=== PATIENT | female | born 1995 | race Caucasian/White ===

== ENCOUNTER 2017-11-19 05:39 | Inpatient (IN) | payer OTHER ==
[2017-11-18 14:25] LABS: RPR Titer ND
[2017-11-18 14:34] LABS: Urine Appearance CLEAR; Urine Bilirubin NEGATIVE (NEG); Urine Blood NEGATIVE (NEG); Urine Color YELLOW; Urine Glucose NEGATIVE (NEG); Urine Protein NEGATIVE (NEG); Urine Urobilinogen 0.2 mg/dL (0.2-1.0)
[2017-11-18 14:37] LABS: Absolute Lymphocytes (CBC) 1.4 K/uL (0.7-4.9); Absolute Neutrophil 7.7 K/uL (1.8-8.0); Basophils % 0.3 % (0-1.3); Eosinophils % 0.7 % (0-4.4); Hematocrit 33.7 % (36.0-45.0); MCH 30.3 pg (27.0-35.0); MCV 86.1 fL (80-100); MPV 10.1 fL (7.6-11.3); Monocytes % 9.8 % (3.3-12.3); RBC Red Blood Cell Count 3.91 M/uL (3.86-4.86)
[2017-11-18 14:40] LABS: Protime INR 0.99
[2017-11-18 15:13] LABS: Blood Morphology Comment NOT SEEN (NOT SEEN); Platelet Estimate ADEQ; Urine White Blood Cell Casts OK
[2017-11-18 15:25] LABS: Urine Bacteria 20-50 /HPF (<20); Urine Culture Reflex Order REFLEXED; Urine RBC <5 /HPF (NONE SEEN)
[2017-11-18 22:54] LABS: RPR (Rapid Plasma Reagin) NON-REACT (NON-REACT)
[~2017-11-19 05:39] MED LIST: CARBOPROST TROME 250 MCG/ML IM ONE; METHYLERGONOVINE 0.2MG/ML AMP IM ONE
[2017-11-19] MEDS ORDERED: Ringers Lactate 1,000 ML IV PRN (06:00)
[2017-11-19] MEDS ORDERED: CEFAZOLIN/SWI 1gm 2 GM/20 ML SYR ONE (06:12)
[2017-11-19 06:30] VITALS: BMI 38.0
[2017-11-19] MEDS ORDERED: METOCLOPRAMIDE 10 MG/2mL INJ IV SCH (06:30)
[2017-11-19] MEDS ORDERED: NA CIT/CITRIC AC 30 ML ORAL UDC PO ONE (06:30)
[2017-11-19] MEDS ORDERED: EPHEDRINE SULF 50 MG/ML SYR ONE (06:44)
[2017-11-19] MEDS ORDERED: MORPHINE SULFATE/PF 1 MG/ML (10 ML AMP) ONE (06:45)
[2017-11-19] MEDS ORDERED: FENTANYL CITR 250 MCG/5 ML ONE (06:45)
[2017-11-19] MEDS ORDERED: OXYTOCIN 10 UNIT/ML ML IV ONE (06:45)
[2017-11-19] MEDS ORDERED: CEFAZOLIN 2 GM in NA CHLORIDE 0.9% 100 ML IVPB ONE (07:00)
[2017-11-19] MEDS ORDERED: Ringers Lactate 1,000 ML IV SCH (07:00)
--- NOTE | 2017-11-19 08:51 | PREOPHP ---
Date of Admission: 11/19/2017 History Of Present Illness: A 22-year-old, 2, para 1, previous , for repeat cesarea n section. Infection, blood loss, anesthetic complications, injury to bladder, bowel, ureter, postop erative complications, clots in legs, pneumonia discussed. The patient knows fully well this does no t constitute all the possible problems that could occur during or following surgery. Family History: Father and grandparents with hypertension. Grandparents also with diabetes. Past Surgical History: The patient has had previous . Allergies: SHE IS NOT ALLERGIC TO ANYTHING. Social History: Does not smoke. Physical Examination: HEENT: Clear. Pupils equal, round, reactive to light and accommodation. Conjunctivae well perfused . No oral, lingual, or buccal lesions. Chest and Lungs: Clear. Heart: Without murmurs, thrills, heaves, or rubs of any significance. Breasts: Not examined today. Abdomen: Term size. Baby is vertex and fairly low in the pelvis, but cervix is closed. Extremities: Clear without edema, cyanosis, or clubbing. Plan: We will proceed with repeat section Friday. KIRIT/SUZIE Voice ID: [id number]
[2017-11-19] MEDS ORDERED: PROMETHAZINE 25 MG/ML VIAL IV PRN (08:59)
[2017-11-19] MEDS ORDERED: DIPHENHYDRAMINE 50 MG/ML VIAL IV PRN (08:59)
[2017-11-19] MEDS ORDERED: NALOXONE 0.4 MG/ML VIAL IV PRN (09:00)
[2017-11-19] MEDS ORDERED: ONDANSETRON 4 MG/2 ML VIAL IV PRN ×2 (09:01→13:34)
[2017-11-19] MEDS ORDERED: KETOROLAC 30 MG/ML INJ IV PRN (13:34)
[2017-11-19] MEDS ORDERED: ACETAMINOPHEN 500 MG TAB PO PRN (13:34)
[2017-11-19] MEDS ORDERED: BISACODYL 10 MG RECTAL SUPP RECT PRN (13:34)
[2017-11-19] MEDS ORDERED: DIPHENHYDRAMINE 25 MG TAB/CAP PO PRN (13:34)
[2017-11-19] MEDS ORDERED: Oxycodone HCl/Acetaminophen 1 TAB TAB PO PRN (13:34)
[2017-11-19] MEDS ORDERED: ONDANSETRON 4 MG (ODT) TAB PO PRN (13:34)
[2017-11-19] MEDS ORDERED: D5LR 1,000 ML with OXYTOCIN 20 UNIT IV SCH ×2 (14:00)
[2017-11-19] MEDS ORDERED: OXYTOCIN/LR 20 UNIT/1,000 ML BAG IV SCH (14:00)
[2017-11-19] MEDS ORDERED: CEFAZOLIN/SWI 2gm 2 GM/20 ML SYR IV ONE ×2 (15:30→16:00)
[2017-11-19] MEDS ORDERED: METHYLERGONOVINE 0.2MG/ML AMP IM ONE (15:48)
[2017-11-19] MEDS ORDERED: METHYLERGONOVINE 0.2MG/ML AMP IM PRN (15:48)
--- NOTE | 2017-11-19 19:24 | OP ---
Surgeon: Froilan Linda MD Anesthesiologist: Dr. Torsten long. Indication: A 22-year-old, 2, para 1, previous section for repeat section. Infection, blood loss, anesthetic complications, injury to bladder, bowel, ureter, postoperative co mplications, clots in legs, pneumonia discussed. The patient knows fully well this does not constitu te all the possible problems that could occur during or following surgery. Anesthesia: Spinal block anesthesia. 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 Procedure In Detail: After spinal block anesthesia, patient prepped and draped in usual sterile henning er, and placed in supine position. A time-out was performed. Pfannenstiel incision was then created . The incision was carried to the fascia. The fascia was incised, and incision carried transversely bilaterally. Anterior fascial plane was developed with both blunt and sharp dissection, underlying rectus muscle was , peritoneum entered bluntly. The patient noted to have significant scarr ing. The omentum was completely plastered to the top of the uterus, mostly on the patient's left lora e. There were also 2 other peritoneal adhesions. These were moved later to remove the uterus from t he peritoneal cavity. Prior to that though the bladder flap was developed. A low transverse uterine incision created. A term female was delivered without difficulty. Vacuum suction used to elevate t he head to the correct angle for delivery. 9 and 9. Cord blood specimen was obtained. The pl acenta was removed manually. Uterus cleared of clot and blood. Cervical os was dilated. Uterus ashley sed with a running locked stitch with 1 chromic followed by 3 [id number] stitches in the right a ngle for complete hemostasis. At this time, the adhesions were all removed. The omental adhesion wa s quite vascular, at least 5-6 sutures were placed with Vicryl and 1 chromic. Bleeding stopped from the omental adhesion at that point. Reinspection showed no further bleeding along the suture site. The uterus was replaced in the peritoneal cavity and again the gutters checked and the omental bleedi ng site was stable. At this point, the muscles were reapproximated with 0 Vicryl, 2 sutures. The fa scia was closed with 1 Vicryl running locked stitch to the midline, both sides, 2-0 plain was used to approximate the subcutaneous tissue. Absorbable shadia placed and then metal shadia. The patient had been given 2 g of Ancef for prophylaxis. Tolerated all procedures well. She was transferred ba to her room in good condition. Final Diagnoses: 1.Term intrauterine . 2.Repeat section. 3.Spinal block anesthesia. 4.Significant omental and peritoneal adhesions, especially involving the left side. KIRIT/SUZIE Voice ID: [id number] Report ID: [id number]
[2017-11-20] MEDS: Oxycodone HCl/Acetaminophen 1 TAB TAB PO PRN ×3 (01:06→20:00)
[2017-11-20] MEDS: KETOROLAC 30 MG/ML INJ IM PRN (10:01)
--- NOTE | 2017-11-20 10:52 | PN ---
Postoperatively, the patient has done quite well. H and H with minimal change. Lochia is normal. T he patient has already ambulated. We will discontinue Moss and IV. If she does well today, send he r home tomorrow morning. Full dismissal instructions given, but we will go over those again tomorrow . No post spinal block problems. The patient is Rh positive, immune to Rubella. KIRIT/SUZIE Voice ID: [id number] Report ID: [id number]
[2017-11-20 11:30] LABS: HBsAG Nonreactive (Nonreactive)
[2017-11-20] MEDS ORDERED: MAGNESIUM HYDROXIDE 8% 30 ML PO PRN (13:34)
[2017-11-21] MEDS: KETOROLAC 30 MG/ML INJ IM PRN (04:15)
[2017-11-21 08:26] VITALS: BP 123/67; TEMP 97.5
--- NOTE | 2017-11-24 10:10 | DS ---
Date of Discharge: 11/21/2017 Hospital Course: A 22-year-old 2, para 1, repeat section at 39 weeks. Spinal block anesthesia. Estimated blood loss 850 cc. The patient was noted to have significant adhesions of th e omentum especially to the fundal, left side of the uterus, and 2 peritoneal adhesions also on the l eft side. These all were removed. and postoperatively the patient has remained afebrile. We will dismiss her this morning. She will report back to my office next week for staple removal. She is to report any temperature elevation of 100 degrees or greater, severe pain, heavy bleeding, o r any other type of abnormality. Dismissed with tramadol for analgesia. She may take Motrin instead since she is , that is her decision. She is Rh positive, immune to Rubella. She has n o post spinal block problems. She has had her Tdap immunization during the . Full instruct ions given. Final Diagnoses: 1.Term intrauterine . 2.Repeat section. 3.Spinal block anesthesia. 4.Significant scarring, especially left side of the uterus, peritoneal, and omental adhesions. KIRIT/SUZIE Voice ID: [id number] Report ID: [id number]
== END 2017-11-21 08:05 | disposition home or self-care (01) | DRG 766 ==
LOC: 2ND-WC 05:39
PROVIDERS: ADMIT Specialist; ATTEND Specialist
PROC: 10D00Z1 Extraction of Products of Conception, Low, Open Approach (ICD-10-PCS; principal; 2017-11-19 07:30)
DX: O34.211 Maternal care for low transverse scar from previous cesarean delivery (principal); O99.613 Diseases of the digestive system complicating pregnancy, third trimester; N73.6 Female pelvic peritoneal adhesions (postinfective); Z3A.39 39 weeks gestation of pregnancy; Z37.0 Single live birth
CPT/HCPCS: 36415; 81001; 85014; 85025; 85610; 85730; 86592; 86850; 86900; 86901; 87086; 87088; 87340; 88305; 88307; G0433; J0690; J2210; J2590; J2765

== ENCOUNTER 2017-12-31 13:18 | Emergency (ER) | payer OTHER ==
[2017-12-31 14:33] LABS: Urine Blood 2+ (NEG); Urine Glucose NEGATIVE (NEG); Urine Protein NEGATIVE (NEG); Urine Specific Gravity <1.005 (1.005-1.030); Urine pH 5.5 (5.0-7.0)
[2017-12-31] MEDS ORDERED: MORPHINE 4 MG/ML SYR ONE ×2 (14:48→18:26)
[2017-12-31] MEDS ORDERED: NA CHLORIDE 0.9% 1,000 ML ONE (14:49)
[2017-12-31] MEDS ORDERED: ONDANSETRON 4 MG/2 ML VIAL ONE (14:49)
[2017-12-31 15:03] LABS: Absolute Lymphocytes (CBC) 1.5 K/uL (0.7-4.9); Absolute Monocytes 0.5 K/uL (0.1-1.3); Absolute Neutrophil 8.1 K/uL (1.8-8.0); Basophils % 0.4 % (0-1.3); Eosinophils % 1.8 % (0-4.4); Hematocrit 39.4 % (36.0-45.0); Lymphocytes % 14.8 % (15.3-44.8); MCH 28.3 pg (27.0-35.0); MCV 85.3 fL (80-100); MPV 8.4 fL (7.6-11.3); Monocytes % 4.9 % (3.3-12.3); RBC Red Blood Cell Count 4.63 M/uL (3.86-4.86)
[2017-12-31 15:16] LABS: Bicarbonate 24 mEq/L (21-31); Glucose Level 93 mg/dL (65-120); Lipase 25 U/L (22-51); Potassium 4.3 mEq/L (3.6-5.0); Sodium Level 139 mEq/L (135-145)
[2017-12-31 15:23] LABS: ALT/SGPT 47 IU/L (10-60); AST/SGOT 36 IU/L (10-42); Albumin 4.4 g/dL (3.2-5.5); Alkaline Phosphatase 107 IU/L (42-121); Amylase Level 89 U/L (28-100); BUN Blood Urea Nitrogen 11 mg/dL (6-20); Bilirubin Direct 0.1 mg/dL (0-0.2); Bilirubin Total 0.4 mg/dL (0.3-1.2)
[2017-12-31 15:23] LABS: Urine Bacteria <20 /HPF (<20); Urine Culture Reflex Order REFLEXED
--- NOTE | 2017-12-31 16:27 | RAD REPORT ---
EXAM DESCRIPTION: CT - Abdomen Pelvis W Contrast - 12/31/2017 3:41 pm CLINICAL HISTORY: Persistent abdominal and pelvic pain, history of 6 weeks earlier COMPARISON: None. TECHNIQUE: Biphasic, helical CT imaging of the abdomen and pelvis was performed following 100 ml non -ionic IV contrast. Oral contrast was given. All CT scans are performed using dose optimization technique as appropriate and may include automated exposure control or mA/KV adjustment according to patient size. FINDINGS: No suspicious findings in the lung bases. The liver, spleen, and pancreas show no suspicious findings. Gallbladder and biliary tree are also wi thout suspicious finding. Symmetric renal function is seen with no hydronephrosis or suspicious renal mass. No pyelonephritis o r acute renal parenchymal process. No urinary bladder abnormality. No dilated bowel loops or bowel wall thickening. A few small under 1 centimeter mesenteric lymph node s are present. No free air, free fluid or inflammatory stranding. No bulky lymphadenopathy, hernia o r soft tissue mass. No adrenal abnormality. No ovarian abnormality. No fallopian tube dilatation seen. There is a 7 x 4 x 3 cm hypoechoic heterog eneous mass filling the cervix and lower uterine segment. Several curvilinear hyperdensities are pres ent along the periphery of this mass effect. No suspicious bony findings. There is no history available to indicate whether there has been any packing material placed into the cervical canal. The punctate curvilinear hyperdensities could be mineralized or calcified blood clot . Prominent vessels within a cervical canal mass with not be suspected. IMPRESSION: Heterogeneous hypodense 7 x 4 x 3 cm mass filling the cervix and lower uterine segment. In the absence of any additional information regarding cervical packing material, clotted blood or he morrhagic material within the cervical canal developing mineralization would be the primary considera tion. An enhancing cervical canal mass is not excluded but felt to be on likely. Remainder the examination without significant or suspicious finding.
[2017-12-31] MEDS ORDERED: KETOROLAC 30 MG/ML INJ ONE (17:42)
[2017-12-31] MEDS ORDERED: miSOPROStol 100 MCG TAB PO ONE (18:00)
[2017-12-31] MEDS ORDERED: OXYTOCIN/LR 20 UNIT/1,000 ML BAG IV SCH (18:00)
--- NOTE | 2017-12-31 18:03 | RAD REPORT ---
EXAM DESCRIPTION: US - Transvaginal Study Probe - 12/31/2017 5:34 pm CLINICAL HISTORY: Cervical mass, left upper quadrant pain COMPARISON: None. TECHNIQUE: Endovaginal sonography was performed. FINDINGS: Endovaginal sonography was performed as follow-up to the earlier CT study. Mass is again i dentified filling and dilating the cervix. Mass complex is approximately 6 cm x 3 cm x 3 cm. The mass is heterogeneous but predominantly hyperechoic. Doppler evaluation shows some blood flow along the p eriphery at the interface with the cervix. Echotexture raises concern that the the masses retained pl acental tissue. No evidence for invasion into the tubbs of the cervix. Large heterogeneous blood coug h would be possible as well. IMPRESSION: Endovaginal sonography confirms the mass filling and dilating the cervix. Sonographic fi ndings support retained placental tissue as well as heterogeneous blood clot.
--- NOTE | 2017-12-31 18:10 | CON ---
History Of Present Illness: This is a 22-year-old female, who underwent a repeat section 6 weeks ago without problems, requested to come and see me today in the office this afternoon, but robin use of difficulty with transportation, did not come. Started having discomfort in her left upper siobhan drant about 2-3 days ago. She said today it got severe. Came to the emergency room, her temperature is normal, her white count was normal, her blood count is normal, but CAT scan showed possible retai syd products in the cervical os. Dr. Watson attempted to remove it, but it was apparently too uncom fortable, so they called me and I came in for exam. The patient was given 30 mg of Toradol IV. She had morphine earlier during the day, but that is basically completely worn off. Was also given 100 m cg of Cytotec. Speculum was inserted and indeed a piece of the placenta was protruding into the cerv ical os. This was grasped with a ring clamp and easily removed. No further discomfort. No further bleeding seen. The patient will be given Cytotec to ensure uterine contraction 100 mcg 1 every 4 mila rs for 5 additional doses, doxycycline 100 mg twice a day for 6 total doses. She is to return to my office either tomorrow or Friday for her regularly scheduled postoperative visit, at which time, we w ill discuss control. The remainder of the exam is completely normal. Diagnosis: and postop small piece of retained placenta removed easily. Dismissed. KIRIT/SUZIE Voice ID: [id number] Report ID: [id number]
--- NOTE | 2017-12-31 18:11 | ER ---
Nurse's Notes [facility] Name: Saskia Walker Age: 22 yrs Sex: Female : 1995 Arrival Date: 12/31/2017 Time: 13:20 Bed 25 Private MD: None, None Diagnosis: Abdominal tenderness;Missed Presentation: 12/31 13:33 Presenting complaint: Patient states: Lower abdominal pain that started 3-4 days ago. aj Denies changes in vaginal bleeding. 6 weeks post c section. Transition of care: patient was not received from another setting of care. Onset of symptoms was December 27, 2017. Risk Assessment: Do you want to hurt yourself or someone else? Patient reports no desire to harm self or others. Care prior to arrival: None. 13:33 Method Of Arrival: Ambulatory 13:33 Acuity: AARON 3 aj 18:42 Initial Sepsis Screen: Does the patient meet any 2 criteria? No. Patient's initial tl3 sepsis screen is negative. Does the patient have a suspected source of infection? No. Patient's initial sepsis screen is negative. Triage Assessment: 13:34 General: Appears in no apparent distress. comfortable, Behavior is calm, cooperative, aj appropriate for age. Pain: Complains of pain in suprapubic area, right inguinal area and left inguinal area. Neuro: Level of Consciousness is awake, alert, obeys commands, Oriented to person, place, time, situation, Appropriate for age. Respiratory: Airway is patent Respiratory effort is even, unlabored, Respiratory pattern is regular, symmetrical. GI: Reports lower abdominal pain. Derm: Skin is intact, is healthy with good turgor, Skin is pink, warm \T\ dry. normal. ECONOMIC DEVELOPER: 13:34 LMP N/A - Recent aj Historical: - Allergies: 13:34 No Known Allergies; aj - Home Meds: 13:34 None [Active]; aj - PMHx: 13:34 None; aj - PSHx: 13:34 ; aj - Immunization history:: Adult Immunizations up to date. - Social history:: Smoking status: Patient/guardian denies using tobacco. - Ebola Screening: : Patient negative for fever greater than or equal to 101.5 degrees Fahrenheit, and additional compatible Ebola Virus Disease symptoms Patient denies exposure to infectious person Patient denies travel to an Ebola-affected area in the 21 days before illness onset No symptoms or risks identified at this time. Screenin:49 Abuse screen: Denies threats or abuse. Nutritional screening: No deficits noted. tl3 Tuberculosis screening: No symptoms or risk factors identified. Fall Risk None identified. Assessment: 13:49 General: Appears in no apparent distress. well groomed, well developed, well nourished, tl3 Behavior is calm, cooperative, appropriate for age. Pain: Complains of pain in right upper quadrant and left upper quadrant Pain currently is 8 out of 10 on a pain scale. Neuro: Level of Consciousness is awake, alert, obeys commands, Oriented to person, place, time, situation, Appropriate for age. Cardiovascular: Heart tones S1 S2 present Patient's skin is warm and dry. Respiratory: Airway is patent Respiratory effort is even, unlabored, Respiratory pattern is regular, symmetrical, Breath sounds are clear bilaterally. GI: Bowel sounds present in right upper quadrant and right lower quadrant diminished in left upper quadrant and left lower quadrant. GI: Abd is soft Abdomen is tender to palpation in right upper quadrant and left upper quadrant Reports normal bowel habits. : Urine is blood tinged, Reports pt is six weeks post delivery by , thought to be on her cycle. EENT: No deficits noted. No signs and/or symptoms were reported regarding the EENT system. Derm: No deficits noted. No signs and/or symptoms reported regarding the dermatologic system. Musculoskeletal: No deficits noted. No signs and/or symptoms reported regarding the musculoskeletal system. 14:57 Reassessment: No changes from previously documented assessment. Patient and/or family tl3 updated on plan of care and expected duration. Pain level reassessed. Patient is alert, oriented x 3, equal unlabored respirations, skin warm/dry/pink. IV infusing without difficulty, at the bedside. 17:09 Reassessment: No changes from previously documented assessment. Patient and/or family tl3 updated on plan of care and expected duration. Pain level reassessed. Patient is alert, oriented x 3, equal unlabored respirations, skin warm/dry/pink. pelvic exam completed, pt tolerated well. 18:39 Reassessment: No changes from previously documented assessment. Patient and/or family tl3 updated on plan of care and expected duration. Pain level reassessed. Patient is alert, oriented x 3, equal unlabored respirations, skin warm/dry/pink. Dr Linda examined pt and removing tissue. Vital Signs: 13:34 BP 116 / 81; Pulse 86; Resp 18; Temp 97.8; Pulse Ox 99% on R/A; Weight 68.04 kg; Height aj 5 ft. 1 in. (154.94 cm); 14:57 BP 107 / 69; Pulse 61; Resp 18; Pulse Ox 99% ; tl3 17:09 BP 130 / 86; Pulse 56; Resp 18; Pulse Ox 99% on R/A; tl3 18:39 BP 130 / 86; Pulse 61; Resp 16; Pulse Ox 99% ; tl3 13:34 Body Mass Index 28.34 (68.04 kg, 154.94 cm) ED Course: 13:20 Patient arrived in ED. mr 13:21 None, None is Private Physician. mr 13:23 Carlitos Watson MD is Attending Physician. kdr 13:34 Triage completed. aj 13:34 Arm band placed on right wrist. Patient placed in an exam room. aj 13:49 Domitila Hoyos, RN is Primary Nurse. tl3 13:49 Patient has correct armband on for positive identification. Bed in low position. Call tl3 light in reach. Side rails up X 1. Adult w/ patient. 13:49 No provider procedures requiring assistance completed. tl3 14:01 Urine Dipstick--Ancillary (enter results) Sent. tl3 14:42 Urine Dipstick-Ancillary Sent. tl3 14:42 Urine --Ancillary (enter results) Sent. tl3 14:42 Initial lab(s) drawn, by tx, sent to lab. Inserted saline lock: 18 gauge in right tl3 antecubital area, using aseptic technique. Blood collected. 14:45 Radiology exam delayed due to lab results not completed at this time. (BUN/Creatinine). vr 15:[address] vm2 15:40 CT completed. Patient tolerated procedure well. Patient moved back from CT. vm2 15:40 CT Abd/Pelvis - W/Contrast In Process Unspecified. EDMS 17:09 Patient taken to ultrasound. tl3 17:09 Pulse ox on. NIBP on. tl3 17:35 US Transvaginal Study (Probe) In Process Unspecified. EDMS 18:09 Attending Physician role handed off by Carlitos Watson MD salima 18:09 Domenico Smith MD is Attending Physician. salima 18:10 Froilan Lidna MD is Referral Physician. salima 18:39 IV discontinued, intact, bleeding controlled, No redness/swelling at site. Pressure tl3 dressing applied. Administered Medications: 14:53 Drug: Zofran 4 mg Route: IVP; Infused Over: 2 mins; Site: right antecubital; tl3 16:03 Follow up: Response: No adverse reaction tl3 14:54 Drug: NS 0.9% 1000 ml Route: IV; Rate: 1 bolus; Infused Over: 1 hrs; Site: right tl3 antecubital; Delivery: Primary tubing; 16:03 Follow up: IV Status: Completed infusion; IV Intake: 1000ml tl3 14:54 Drug: morphine 4 mg Route: IVP; Infused Over: 3 mins; Site: right antecubital; tl3 16:03 Follow up: Response: No adverse reaction; Pain is decreased tl3 17:36 Drug: Cytotec 100 mcg Route: PO; tl3 17:53 Follow up: Response: No adverse reaction tl3 17:45 Drug: TORadol 30 mg Route: IVP; Infused Over: 2 mins; Site: right antecubital; tl3 18:38 Follow up: Response: No adverse reaction tl3 17:53 Not Given (not required): Pitocin 20 units IV at calculated rate once tl3 18:38 Drug: morphine 4 mg Route: IVP; Infused Over: 3 mins; Site: right antecubital; tl3 18:38 Follow up: Response: Medication administered at discharge. tl3 18:39 Not Given (pt discharged prior to administration): Rocephin - (cefTRIAXone) 1 grams tl3 IVPB once over 30 mins; (mix in 50 mL NS) Intake: 16:03 IV: 1000ml; Total: 1000ml. tl3 Outcome: 18:11 Discharge ordered by . salima 18:39 Discharged to home ambulatory. tl3 18:39 Condition: good 18:39 Discharge instructions given to patient, family, Instructed on discharge instructions, follow up and referral plans. medication usage, Demonstrated understanding of instructions, follow-up care, medications, Prescriptions given X 2. 18:42 Patient left the ED. tl3 Signatures: Dispatcher [employer] EDDE Moran, Abiola, RN RN Domenico Lugo MD MD cha Rittger, Kevin, MD MD kdr Rivera, Maria mr Satya, Leatha Stacy [facility] Domitila Hoyos, RADHA RN tl3
--- NOTE | 2017-12-31 18:11 | EDPHYS ---
Physician Documentation [facility] Name: Saskia Walker Age: 22 yrs Sex: Female : 1995 Arrival Date: 12/31/2017 Time: 13:20 Bed 25 Private MD: None, None ED Physician Domenico Smith HPI: 12/31 17:12 This 22 yrs old Female presents to ER via Ambulatory with complaints of kdr Abdominal Pain. 17:12 The patient presents with abdominal pain in the left upper quadrant. Onset: The kdr symptoms/episode began/occurred gradually, 1 month(s) ago. The symptoms do not radiate. Associated signs and symptoms: none. The symptoms are described as achy, constant, steady. Modifying factors: The symptoms are alleviated by nothing, the symptoms are aggravated by nothing. Severity of pain: At its worst the pain was mild moderate just prior to arrival, in the emergency department the pain is unchanged. The patient has not experienced similar symptoms in the past. The patient has been recently seen by a physician: The patient is 6 weeks post with continued bleeding - one pad per day. No fever, chills, n/v. 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 - Social history:: Smoking status: Patient/guardian denies using tobacco. - Ebola Screening: : Patient negative for fever greater than or equal to 101.5 degrees Fahrenheit, and additional compatible Ebola Virus Disease symptoms Patient denies exposure to infectious person Patient denies travel to an Ebola-affected area in the 21 days before illness onset No symptoms or risks identified at this time. ROS: 17:12 Constitutional: Negative for fever, chills, and weight loss, Eyes: Negative for injury, kdr pain, redness, and discharge, ENT: Negative for injury, pain, and discharge, Neck: Negative for injury, pain, and swelling, Cardiovascular: Negative for chest pain, palpitations, and edema, Respiratory: Negative for shortness of breath, cough, wheezing, and pleuritic chest pain, Back: Negative for injury and pain, MS/Extremity: Negative for injury and deformity, Skin: Negative for injury, rash, and discoloration, Neuro: Negative for headache, weakness, numbness, tingling, and seizure activity. Psych: Negative for depression, anxiety, suicide ideation, homicidal ideation, and hallucinations, Allergy/Immunology: Negative for hives, rash, and allergies, Endocrine: Negative for neck swelling, polydipsia, polyuria, polyphagia, and marked weight changes, Hematologic/Lymphatic: Negative for swollen nodes, abnormal bleeding, and unusual bruising. 17:12 Abdomen/GI: Positive for abdominal pain, nausea, Negative for vomiting, diarrhea, constipation, abdominal cramps, abdominal distension, anorexia, dysphagia, hematemesis, black/tarry stool, rectal pain, rectal bleeding, bowel incontinence. 17:12 : Positive for vaginal bleeding, Negative for urinary frequency, small amounts, hematuria, pelvic pain, flank pain, burning with urination, difficulty urinating. Exam: 17:12 Constitutional: This is a well developed, well nourished patient who is awake, alert, kdr and in no acute distress. Head/Face: Normocephalic, atraumatic. Eyes: Pupils equal round and reactive to light, extra-ocular motions intact. Lids and lashes normal. Conjunctiva and sclera are non-icteric and not injected. Cornea within normal limits. Periorbital areas with no swelling, redness, or edema. Neck: Trachea midline, no thyromegaly or masses palpated, and no cervical lymphadenopathy. Supple, full range of motion without nuchal rigidity, or vertebral point tenderness. No Meningismus. Chest/axilla: Normal chest wall appearance and motion. Nontender with no deformity. No lesions are appreciated. Cardiovascular: Regular rate and rhythm with a normal S1 and S2. No gallops, murmurs, or rubs. Normal PMI, no JVD. No pulse deficits. Respiratory: Lungs have equal breath sounds bilaterally, clear to auscultation and percussion. No rales, rhonchi or wheezes noted. No increased work of breathing, no retractions or nasal flaring. Abdomen/GI: Soft, non-tender, with normal bowel sounds. No distension or tympany. No guarding or rebound. No evidence of tenderness throughout. Back: No spinal tenderness. No costovertebral tenderness. Full range of motion. Skin: Warm, dry with normal turgor. Normal color with no rashes, no lesions, and no evidence of cellulitis. MS/ Extremity: Pulses equal, no cyanosis. Neurovascular intact. Full, normal range of motion. Neuro: Awake and alert, GCS 15, oriented to person, place, time, and situation. Cranial nerves II-XII grossly intact. Motor strength 5/5 in all extremities. Sensory grossly intact. Cerebellar exam normal. Normal gait. Psych: Awake, alert, with orientation to person, place and time. Behavior, mood, and affect are within normal limits. 17:12 : CVA tenderness, is absent, Pelvic Exam: External exam: is normal, Speculum exam: scant bleeding, tissue in cervix is seen, Attempted to extract tissue mass from the cervical os but her pain was worse in her abdomen and at the site of the mass. The mass was approximately 1.5 cm x 3 cm. Vital Signs: 13:34 BP 116 / 81; Pulse 86; Resp 18; Temp 97.8; Pulse Ox 99% on R/A; Weight 68.04 kg; Height aj 5 ft. 1 in. (154.94 cm); 14:57 BP 107 / 69; Pulse 61; Resp 18; Pulse Ox 99% ; tl3 17:09 BP 130 / 86; Pulse 56; Resp 18; Pulse Ox 99% on R/A; tl3 18:39 BP 130 / 86; Pulse 61; Resp 16; Pulse Ox 99% ; tl3 13:34 Body Mass Index 28.34 (68.04 kg, 154.94 cm) aj MDM: 17:12 Differential diagnosis: bowel obstruction, Dysmenorrhea, Ectopic , kdr Endometriosis, gastritis, GI Bleed. Data reviewed: vital signs. Counseling: I had a detailed discussion with the patient and/or guardian regarding: the historical points, exam findings, and any diagnostic results supporting the discharge/admit diagnosis, lab results, radiology results. Physician consultation: Froilan Linda MD regarding consult, patient's condition, need to come to ED to see patient, and will see patient in ED, immediately. 17:49 Patient medically screened. cp 12/31 13:52 Order name: Urine Dipstick--Ancillary (enter results) bd 12/31 13:52 Order name: Urine --Ancillary (enter results); Complete Time: 15:29 bd 12/31 13:52 Order name: Urine Dipstick-Ancillary; Complete Time: 15:29 EDWA 12/31 14:35 Order name: Amylase, Serum; Complete Time: 15:29 kdr 12/31 14:35 Order name: Basic Metabolic Panel; Complete Time: 15:29 kdr 12/31 14:35 Order name: CBC with Diff; Complete Time: 15:29 kdr 12/31 14:35 Order name: Creatinine for Radiology; Complete Time: 15:29 [facility] 12/31 14:35 Order name: Hepatic Function; Complete Time: 15:29 kdr 12/31 14:35 Order name: Lipase; Complete Time: 15:29 kdr 12/31 14:35 Order name: Urine Microscopic Only; Complete Time: 15:29 kdr 12/31 14:42 Order name: CT Abd/Pelvis - W/Contrast; Complete Time: 16:32 kdr 12/31 14:58 Order name: Test, Serum; Complete Time: 15:29 iw 12/31 15:24 Order name: Urine Culture [facility] 12/31 17:08 Order name: US Transvaginal Study (Probe); Complete Time: 18:10 kdr 12/31 14:35 Order name: IV Saline Lock; Complete Time: 14:42 kdr 12/31 14:35 Order name: Labs collected and sent; Complete Time: 14:42 kdr 12/31 14:35 Order name: Urine Dipstick-Ancillary (obtain specimen); Complete Time: 14:42 kdr Administered Medications: 14:53 Drug: Zofran 4 mg Route: IVP; Infused Over: 2 mins; Site: right antecubital; tl3 16:03 Follow up: Response: No adverse reaction tl3 14:54 Drug: NS 0.9% 1000 ml Route: IV; Rate: 1 bolus; Infused Over: 1 hrs; Site: right tl3 antecubital; Delivery: Primary tubing; 16:03 Follow up: IV Status: Completed infusion; IV Intake: 1000ml tl3 14:54 Drug: morphine 4 mg Route: IVP; Infused Over: 3 mins; Site: right antecubital; tl3 16:03 Follow up: Response: No adverse reaction; Pain is decreased tl3 17:36 Drug: Cytotec 100 mcg Route: PO; tl3 17:53 Follow up: Response: No adverse reaction tl3 17:45 Drug: TORadol 30 mg Route: IVP; Infused Over: 2 mins; Site: right antecubital; tl3 18:38 Follow up: Response: No adverse reaction tl3 17:53 Not Given (not required): Pitocin 20 units IV at calculated rate once tl3 18:38 Drug: morphine 4 mg Route: IVP; Infused Over: 3 mins; Site: right antecubital; tl3 18:38 Follow up: Response: Medication administered at discharge. tl3 18:39 Not Given (pt discharged prior to administration): Rocephin - (cefTRIAXone) 1 grams tl3 IVPB once over 30 mins; (mix in 50 mL NS) Disposition: 12/31/17 18:11 Discharged to Home. Impression: Abdominal tenderness, Missed . - Condition is Stable. - Discharge Instructions: Abdominal Pain, Adult, Incomplete Miscarriage, Abdominal Pain, Adult, [id number]. - Prescriptions for Cytotec 100 mcg Oral tablet - take 1 tablet by ORAL route 4 times per day; 4 tablet. Doxycycline Hyclate 100 mg Oral Tablet - take 1 tablet by ORAL route every 12 hours; 20 tablet. - Medication Reconciliation Form, Thank You Letter, Antibiotic Education, Prescription Opioid Use form. - Follow up: Private Physician; When: 2 - 3 days; Reason: Recheck today's complaints, Continuance of care, Re-evaluation by your physician. Follow up: Froilan Linda MD; When: Tomorrow; Reason: Recheck today's complaints, Continuance of care, Re-evaluation by your physician. - Problem is new. - Symptoms have improved. Signatures: Dispatcher [employer] Abiola Newell RN RN aj Anderson, Corey, MD MD cha Rittger, Kevin, MD MD kdr Page, Corey, PA PA cp Lowrey, Tammy, RN RN tl3 Corrections: (The following items were deleted from the chart) 18:42 18:11 12/31/2017 18:11 Discharged to Home. Impression: Abdominal tenderness; Missed tl3 . Condition is Stable. Forms are Medication Reconciliation Form, Thank You Letter, Antibiotic Education, Prescription Opioid Use. Follow up: Private Physician; When: 2 - 3 days; Reason: Recheck today's complaints, Continuance of care, Re-evaluation by your physician. Follow up: Froilan Linda; When: Tomorrow; Reason: Recheck today's complaints, Continuance of care, Re-evaluation by your physician. Problem is new. Symptoms have improved. salima
[2017-12-31 19:06] VITALS: TEMP 97.8; O2SAT 99
[2017-12-31 19:08] VITALS: BP 130/86
== END 2017-12-31 18:42 | disposition home or self-care (01) ==
LOC: ER 13:18
DX: O72.2 Delayed and secondary postpartum hemorrhage (principal)
CPT/HCPCS: 36415; 74177; 76830; 80048; 80076; 81003; 81015; 81025; 82150; 83690; 84703; 85025; 87086; 87088; 96361; 96374; 96375; 99284; J2405; J2590; J7030; Q9967

== ENCOUNTER 2018-06-13 17:56 | Emergency (ER) | payer SELFPAY ==
[2018-06-13] MEDS ORDERED: ACETAMINOPHEN 500 MG TAB ONE ×2 (18:55→19:02)
[2018-06-13] MEDS ORDERED: ONDANSETRON 4 MG (ODT) TAB ONE (18:55)
[2018-06-13 19:29] LABS: Urine Blood 2+ (NEG); Urine Glucose NEGATIVE (NEG); Urine Protein 1+ (NEG)
--- NOTE | 2018-06-13 20:10 | RAD REPORT ---
EXAM DESCRIPTION: RAD - Chest Pa And Lat (2 Views) - 06/13/2018 7:09 pm CLINICAL HISTORY: Cough, fever COMPARISON: None. TECHNIQUE: PA and lateral views of the chest were obtained. FINDINGS: The lungs are clear. Heart size is normal and central vasculature is within normal limit s. No pleural effusion or pneumothorax seen. No acute bony finding noted. No aortic abnormality. IMPRESSION: No acute cardiopulmonary process.
[2018-06-13 20:21] LABS: Urine Bacteria >50 /HPF (<20); Urine RBC <5 /HPF (NONE SEEN)
[2018-06-13 20:22] LABS: Urine Culture Reflex Order REFLEXED
--- NOTE | 2018-06-13 20:30 | EDPHYS ---
Physician Documentation [facility] Name: Saskia Walker Age: 23 yrs Sex: Female : 1995 Arrival Date: 06/13/2018 Time: 17:58 Bed 20 Private MD: ED Physician Carlitos Watson HPI: 06/13 18:45 This 23 yrs old Female presents to ER via Ambulatory with complaints of Flu cp Symptoms. 18:45 The patient or guardian reports cough, that is intermittent, with no sputum, flu cp symptoms, low-grade fever, body aches. 18:45 Onset: The symptoms/episode began/occurred 5 day(s) ago. Associated signs and symptoms: cp Pertinent positives: sore throat, back pain. Severity of symptoms: in the emergency department the symptoms are unchanged despite home interventions. 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 - Social history:: Smoking status: Patient/guardian denies using tobacco. - Ebola Screening: : No symptoms or risks identified at this time. ROS: 18:55 Constitutional: Positive for body aches, chills, fever, Negative for poor PO intake. cp 18:55 Eyes: Negative for injury, pain, redness, and discharge. cp 18:55 ENT: Positive for sore throat, Negative for drainage from ear(s), ear pain, difficulty cp swallowing, difficulty handling secretions. 18:55 Neck: Negative for pain with movement, pain at rest, stiffness. 18:55 Cardiovascular: Negative for chest pain. 18:55 Respiratory: Positive for cough, Negative for shortness of breath, wheezing. 18:55 Abdomen/GI: Positive for nausea, Negative for abdominal pain, diarrhea, constipation, active vomiting. 18:55 Back: Positive for pain at rest. 18:55 : Positive for urinary frequency, Negative for burning with urination, vaginal bleeding, vaginal discharge. 18:55 Skin: Negative for cellulitis, rash. 18:55 Neuro: Negative for altered mental status, headache, weakness. cp 18:55 All other systems are negative. Exam: 19:00 Constitutional: The patient appears in no acute distress, alert, awake, non-toxic, well cp developed, well nourished. 19:00 Head/Face: Normocephalic, atraumatic. cp 19:00 Eyes: Periorbital structures: appear normal, Conjunctiva: normal, no exudate, no injection, Sclera: no appreciated abnormality, Lids and lashes: appear normal, bilaterally. 19:00 ENT: External ear(s): are unremarkable, Ear canal(s): are normal, clear, TM's: bulging, is not appreciated, bilaterally, dullness, bilaterally, erythema, is not appreciated, bilaterally, Nose: is normal, Mouth: Lips: moist, Oral mucosa: moist, Posterior pharynx: Airway: no evidence of obstruction, patent, Tonsils: no enlargement, no exudate, swelling, is not appreciated, erythema, that is mild, Voice: is normal. 19:00 Neck: ROM/movement: is normal, is supple, without pain, no range of motions limitations, no meningismus, no nuchal rigidity. 19:00 Chest/axilla: Inspection: normal, Palpation: is normal, no crepitus, no tenderness. 19:00 Cardiovascular: Rate: tachycardic, Rhythm: regular, Edema: is not appreciated, JVD: is not appreciated. 19:00 Respiratory: the patient does not display signs of respiratory distress, Respirations: normal, no use of accessory muscles, no retractions, no splinting, no tachypnea, labored breathing, is not present, Breath sounds: are clear throughout, no decreased breath sounds, no stridor, no wheezing. 19:00 Abdomen/GI: Inspection: abdomen appears normal, Bowel sounds: active, all quadrants, Palpation: abdomen is soft and non-tender, in all quadrants, involuntary guarding, is not appreciated. 19:00 Back: pain, that is mild, ROM is normal. 19:00 Skin: cellulitis, is not appreciated, no rash present. 19:00 Neuro: Orientation: to person, place \T\ time. Mentation: is normal, Cerebellar function: is grossly normal, Motor: moves all fours, strength is normal, Sensation: is normal. Vital Signs: 18:03 BP 108 / 82; Pulse 112; Resp 16; Temp 101.3(TE); Pulse Ox 100% on R/A; Weight 72.57 kg; la1 Height 5 ft. 1 in. (154.94 cm); 19:17 BP 117 / 58; Pulse 92; Resp 17 S; Temp 100.2(O); Pulse Ox 100% on R/A; cc3 20:45 BP 103 / 58; Pulse 90; Resp 18 S; Temp 99.1(O); Pulse Ox 99% on R/A; cc3 18:03 Body Mass Index 30.23 (72.57 kg, 154.94 cm) la1 MDM: 18:11 Patient medically screened. cp 19:00 Differential diagnosis: bronchitis, flu, URI. cp 20:25 Data reviewed: vital signs, nurses notes, lab test result(s), radiologic studies, plain cp films, and as a result, I will discharge patient. 20:25 Test interpretation: by ED physician or midlevel provider: plain radiologic studies. 06/13 18:39 Order name: Influenza Screen (a \T\ B); Complete Time: 19:32 06/13 18:39 Order name: Strep; Complete Time: 19:32 06/13 19:15 Order name: Throat Culture [facility] 06/13 19:23 Order name: Urine Dipstick--Ancillary (enter results); Complete Time: 19:32 ar5 06/13 20:18 Interpretation: Normal except: UBLD 2+; UPROT 1+; UESTR 3+. 06/13 19:32 Order name: Urine Microscopic Only; Complete Time: 20:26 06/13 20:23 Order name: Urine Culture [facility] 06/13 18:39 Order name: XRAY Chest Pa And Lat (2 Views); Complete Time: 20:18 06/13 18:39 Order name: Urine Dipstick-Ancillary (obtain specimen); Complete Time: 18:57 06/13 18:39 Order name: Urine Test (obtain specimen); Complete Time: 18:56 cp 06/13 19:32 Order name: PO challenge; Complete Time: 20:03 cp Administered Medications: 18:56 Drug: Zofran 4 mg Route: PO; ls4 19:30 Follow up: Response: No adverse reaction; Nausea is decreased cc3 18:56 Drug: Tylenol 1000 mg Route: PO; ls4 21:05 Follow up: Response: No adverse reaction; Pain is decreased cc3 20:55 Drug: Rocephin (cefTRIAXone) 1 grams Route: IM; Site: right gluteus; cc3 21:05 Follow up: Response: No adverse reaction cc3 Disposition: 06/14 09:55 Co-signature as Attending Physician, Carlitos Wtason MD I agree with the assessment and kdr plan of care. Disposition: 06/13/18 20:29 Discharged to Home. Impression: Urinary tract infection, site not specified, Cough. - Condition is Stable. - Discharge Instructions: Urinary Tract Infection, Adult, Cool Mist Vaporizer, Cough, Adult. - Prescriptions for Ibuprofen 800 mg Oral Tablet - take 1 tablet by ORAL route every 8 hours As needed take with food; 30 tablet. Zofran 4 mg Oral Tablet - take 1 tablet by ORAL route every 12 hours As needed; 20 tablet. Tessalon Perles 100 mg Oral Capsule - take 1 capsule by ORAL route every 8 hours As needed; 15 capsule. Augmentin 875- 125 mg Oral Tablet - take 1 tablet by ORAL route every 12 hours for 10 days; 20 tablet. - Medication Reconciliation Form, Thank You Letter, Antibiotic Education, Prescription Opioid Use form. - Follow up: Private Physician; When: 2 - 3 days; Reason: Recheck today's complaints. - Problem is new. - Symptoms have improved. Signatures: Dispatcher [employer] EDMS Carlitos Watson MD MD kdr Rigo Reyes RN RN la1 Domenico Clarke PA PA cp Cordel, Charlene cc3 Yulissa Addison RN RN ls4 Corrections: (The following items were deleted from the chart) 06/13 20:31 20:29 06/13/2018 20:29 Discharged to Home. Impression: Urinary tract infection, site cp not specified. Condition is Stable. Forms are Medication Reconciliation Form, Thank You Letter, Antibiotic Education, Prescription Opioid Use. Follow up: Private Physician; When: 2 - 3 days; Reason: Recheck today's complaints. Problem is new. Symptoms have improved. cp 21:10 20:31 06/13/2018 20:29 Discharged to Home. Impression: Urinary tract infection, site cc3 not specified; Cough. Condition is Stable. Discharge Instructions: Urinary Tract Infection, Adult. Prescriptions for Ibuprofen 800 mg Oral Tablet - take 1 tablet by ORAL route every 8 hours As needed take with food; 30 tablet, Zofran 4 mg Oral Tablet - take 1 tablet by ORAL route every 12 hours As needed; 20 tablet. and Forms are Medication Reconciliation Form, Thank You Letter, Antibiotic Education, Prescription Opioid Use. Follow up: Private Physician; When: 2 - 3 days; Reason: Recheck today's complaints. Problem is new. Symptoms have improved. cp
--- NOTE | 2018-06-13 20:30 | ER ---
Nurse's Notes [facility] Name: Saskia Walker Age: 23 yrs Sex: Female : 1995 Arrival Date: 06/13/2018 Time: 17:58 Bed 20 Private MD: Diagnosis: Urinary tract infection, site not specified;Cough Presentation: 06/13 18:02 Presenting complaint: Patient states: fever, body aches, cough for 5 or 6 days. la1 Children at home with RSV and strep. Transition of care: patient was not received from another setting of care. Onset of symptoms was June 13, 2018. Risk Assessment: Do you want to hurt yourself or someone else? Patient reports no desire to harm self or others. Initial Sepsis Screen: Does the patient meet any 2 criteria? No. Patient's initial sepsis screen is negative. Does the patient have a suspected source of infection? No. Patient's initial sepsis screen is negative. Care prior to arrival: None. 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 - Social history:: Smoking status: Patient/guardian denies using tobacco. - Ebola Screening: : No symptoms or risks identified at this time. Screenin:13 Abuse screen: Denies threats or abuse. Denies injuries from another. Nutritional ls4 screening: No deficits noted. Tuberculosis screening: No symptoms or risk factors identified. Fall Risk None identified. Assessment: 19:15 General: Appears in no apparent distress. comfortable, Behavior is calm, cooperative, cc3 appropriate for age. Pain: Complains of pain in generalized acute body pain. Neuro: Level of Consciousness is awake, alert, obeys commands, Oriented to person, place, time, situation, Appropriate for age. Cardiovascular: Denies chest pain. Respiratory: Reports cough that is since friday Airway is patent Respiratory effort is even, unlabored, Respiratory pattern is regular, symmetrical. GI: Abdomen is flat, non-distended. : No signs and/or symptoms were reported regarding the genitourinary system. EENT: No signs and/or symptoms were reported regarding the EENT system. Derm: No signs and/or symptoms reported regarding the dermatologic system. Musculoskeletal: Circulation, motion, and sensation intact. Range of motion: intact in all extremities. 20:20 Reassessment: Patient appears in no apparent distress at this time. Patient and/or cc3 family updated on plan of care and expected duration. Pain level reassessed. Patient is alert, oriented x 3, equal unlabored respirations, skin warm/dry/pink. 21:05 Reassessment: Patient appears in no apparent distress at this time. Patient and/or cc3 family updated on plan of care and expected duration. Pain level reassessed. Patient is alert, oriented x 3, equal unlabored respirations, skin warm/dry/pink. PA Tricia discharged the patient home with prescription given. No IV cannula in situ. Patient left ER vitally stable and ambulatory. Vital Signs: 18:03 BP 108 / 82; Pulse 112; Resp 16; Temp 101.3(TE); Pulse Ox 100% on R/A; Weight 72.57 kg; la1 Height 5 ft. 1 in. (154.94 cm); 19:17 BP 117 / 58; Pulse 92; Resp 17 S; Temp 100.2(O); Pulse Ox 100% on R/A; cc3 20:45 BP 103 / 58; Pulse 90; Resp 18 S; Temp 99.1(O); Pulse Ox 99% on R/A; cc3 18:03 Body Mass Index 30.23 (72.57 kg, 154.94 cm) la1 ED Course: 17:58 Patient arrived in ED. rg4 18:03 Triage completed. la1 18:04 Arm band placed on left wrist. la1 18:10 Domenico Clarke PA is PHCP. cp 18:10 Carlitos Watson MD is Attending Physician. cp 18:13 Yulissa Addison, RADHA is Primary Nurse. ls4 18:56 Influenza Screen (a \T\ B) Sent. ls4 18:56 Strep Sent. ls4 19:04 XRAY Chest Pa And Lat (2 Views) In Process Unspecified. EDMS 19:15 Patient has correct armband on for positive identification. Bed in low position. Call cc3 light in reach. Side rails up X 1. Pulse ox on. NIBP on. 21:05 No provider procedures requiring assistance completed. IV discontinued, intact, cc3 bleeding controlled, No redness/swelling at site. Pressure dressing applied. Administered Medications: 18:56 Drug: Zofran 4 mg Route: PO; ls4 19:30 Follow up: Response: No adverse reaction; Nausea is decreased cc3 18:56 Drug: Tylenol 1000 mg Route: PO; ls4 21:05 Follow up: Response: No adverse reaction; Pain is decreased cc3 20:55 Drug: Rocephin (cefTRIAXone) 1 grams Route: IM; Site: right gluteus; cc3 21:05 Follow up: Response: No adverse reaction cc3 Outcome: 20:29 Discharge ordered by MD. cp 21:05 Discharged to home ambulatory. cc3 21:05 Condition: stable 21:05 Discharge instructions given to patient, Instructed on discharge instructions, follow up and referral plans. medication usage, Demonstrated understanding of instructions, follow-up care, medications, Prescriptions given X 4. 21:10 Patient left the ED. cc3 Addendum: 06/18/2018 07:32 Addendum: Culture Results: Positive urine culture. No further action required. Bacteria i w sensitive to prescribed antibiotic. Signatures: Dispatcher [employer] EDMS Kayleen Tolbert, RN RADHA iw Rigo Reyes RN RN la1 Domenico Clarke PA PA Imelda Mcdonald 4 Chela Daly cc3 Yulissa Addison RN RN ls4
[2018-06-13] MEDS ORDERED: CEFTRIAXONE 1000 MG/VIAL ONE (20:49)
[2018-06-13] MEDS ORDERED: WATER FOR INJ,STERILE 10 ML ONE (20:49)
[2018-06-13 21:25] VITALS: O2SAT 100
[2018-06-13 21:26] VITALS: BP 117/58; TEMP 100.2
== END 2018-06-13 21:10 | disposition home or self-care (01) ==
LOC: ER 17:56
DX: N39.0 Urinary tract infection, site not specified (principal); R05 Cough
CPT/HCPCS: 71046; 81003; 81015; 87070; 87077; 87081; 87086; 87088; 87186; 87804; 96372; 99284

== ENCOUNTER 2021-05-11 21:55 | Emergency (ER) | payer SELFPAY ==
[2021-05-11 23:08] LABS: Absolute Lymphocytes (CBC) 1.9 K/uL (0.7-4.9); Basophils % 0.5 % (0-1.3); Hematocrit 37.7 % (36.0-45.0); Lymphocytes % 25.3 % (15.3-44.8); MPV 9.3 fL (7.6-11.3); RBC Red Blood Cell Count 4.12 M/uL (3.86-4.86)
[2021-05-11 23:27] LABS: ALT/SGPT 21 U/L (12-78); AST/SGOT 13 U/L (15-37); Albumin 3.9 g/dL (3.4-5.0); Alkaline Phosphatase 47 U/L (45-117); BUN Blood Urea Nitrogen 15 mg/dL (7-18); Bicarbonate 27 mmol/L (21-32); Bilirubin Direct < 0.1 mg/dL (0-0.2); Bilirubin Total 0.2 mg/dL (0.2-1.0); Glucose Level 91 mg/dL (74-106); Sodium Level 139 mmol/L (136-145)
[2021-05-11 23:38] LABS: SARS-COV-2 RT PCR NEGATIVE (NEGATIVE)
[2021-05-11 23:47] LABS: Urine Blood Negative (Negative); Urine Glucose Negative (Negative); Urine Protein Negative (Negative); Urine Specific Gravity 1.015 (1.005-1.030); Urine pH 5.5 (5.0-7.0)
[2021-05-11 23:55] LABS: Urine Specific Gravity/Preg 1.015 (1.005-1.030)
[2021-05-11] MEDS ORDERED: NA CHLORIDE 0.9% 1,000 ML ONE (23:57)
[2021-05-11] MEDS ORDERED: DIPHENHYDRAMINE 50 MG/ML VIAL ONE (23:57)
[2021-05-11] MEDS ORDERED: METOCLOPRAMIDE 10 MG/2mL INJ ONE (23:57)
[2021-05-12] MEDS ORDERED: ACETAMINOPHEN 500 MG TAB ONE (00:06)
[2021-05-12 00:52] LABS: Urine Bacteria 20-50 /HPF (<20); Urine RBC <5 /HPF (NONE SEEN)
[2021-05-12] MEDS ORDERED: CEFTRIAXONE 1000 MG/VIAL ONE (00:56)
--- NOTE | 2021-05-12 01:10 | EDPHYS ---
Physician Documentation [facility] Name: Saskia Walker Age: 26 yrs Sex: Female : 1995 Arrival Date: 05/11/2021 Time: 21:59 Bed 23 Private MD: ED Physician Man Bates HPI: 05/11 22:10 This 26 yrs old Female presents to ER via Ambulatory with complaints of mh7 Nausea/Vomiting, Headache, Numbness Of Arm, BODY ACHES, Dizziness. 22:10 The patient presents to the emergency department with nausea, that is moderate, mh7 vomiting, that is intermittent, 3 times since the onset of symptoms, described as clear fluid. Onset: The symptoms/episode began/occurred today. Possible causes: Covid vaccination. The symptoms are aggravated by nothing. The symptoms are alleviated by nothing. Associated signs and symptoms: Pertinent positives: Body aches, headache, arm soreness, Pertinent negatives: abdominal pain, anorexia, belching, constipation, diarrhea, dysuria, fever, flatulence, GI bleeding, hematuria, vaginal discharge. Severity of symptoms: At their worst the symptoms were moderate today, in the emergency department the symptoms have improved moderately. Patient reports having nausea, vomiting, headache, body aches, pain in left arm after receiving her first Covid vaccination this morning. She denies any fever, neck pain, chest pain, abdominal pain, shortness of breath, cough, diarrhea, dysuria, dizziness, or weakness.. 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 - Social history:: Smoking status: Patient denies any tobacco usage or history of. Patient uses alcohol, but reports only rare drinking. ROS: 22:10 Constitutional: Negative for fever, chills, and weight loss, Eyes: Negative for injury, mh7 pain, redness, and discharge, ENT: Negative for injury, pain, and discharge, Neck: Negative for injury, pain, and swelling, Cardiovascular: Negative for chest pain, palpitations, and edema, Respiratory: Negative for shortness of breath, cough, wheezing, and pleuritic chest pain, Back: Negative for injury and pain, : Negative for injury, bleeding, discharge, and swelling, Skin: Negative for injury, rash, and discoloration, Psych: Negative for depression, anxiety, suicide ideation, homicidal ideation, and hallucinations, Allergy/Immunology: Negative for hives, rash, and allergies, Endocrine: Negative for neck swelling, polydipsia, polyuria, polyphagia, and marked weight changes, Hematologic/Lymphatic: Negative for swollen nodes, abnormal bleeding, and unusual bruising. Exam: 22:10 Constitutional: This is a well developed, well nourished patient who is awake, alert, mh7 and in no acute distress. Head/Face: Normocephalic, atraumatic. Eyes: Pupils equal round and reactive to light, extra-ocular motions intact. Lids and lashes normal. Conjunctiva and sclera are non-icteric and not injected. Cornea within normal limits. Periorbital areas with no swelling, redness, or edema. ENT: Nares patent. No nasal discharge, no septal abnormalities noted. Tympanic membranes are normal and external auditory canals are clear. Oropharynx with no redness, swelling, or masses, exudates, or evidence of obstruction, uvula midline. Mucous membranes moist. Neck: Trachea midline, no thyromegaly or masses palpated, and no cervical lymphadenopathy. Supple, full range of motion without nuchal rigidity, or vertebral point tenderness. No Meningismus. Chest/axilla: Normal chest wall appearance and motion. Nontender with no deformity. No lesions are appreciated. Cardiovascular: Regular rate and rhythm with a normal S1 and S2. No gallops, murmurs, or rubs. Normal PMI, no JVD. No pulse deficits. Respiratory: Lungs have equal breath sounds bilaterally, clear to auscultation and percussion. No rales, rhonchi or wheezes noted. No increased work of breathing, no retractions or nasal flaring. Abdomen/GI: Soft, non-tender, with normal bowel sounds. No distension or tympany. No guarding or rebound. No evidence of tenderness throughout. Back: No spinal tenderness. No costovertebral tenderness. Full range of motion. Skin: Warm, dry with normal turgor. Normal color with no rashes, no lesions, and no evidence of cellulitis. 22:10 Neuro: Awake and alert, GCS 15, oriented to person, place, time, and situation. Cranial nerves II-XII grossly intact. Motor strength 5/5 in all extremities. Sensory grossly intact. Cerebellar exam normal. Normal gait. Psych: Awake, alert, with orientation to person, place and time. Behavior, mood, and affect are within normal limits. 22:10 Musculoskeletal/extremity: Extremities: noted in the Left arm: tenderness, At injection site, ROM: intact in all extremities, Circulation is intact in all extremities. Sensation intact. Joints: All joints appear normal with full range of motion. Weight bearing: able to fully bear weight, without difficulty, Tendon exam: specific tendon testing normal through active and passive range of motion Vital Signs: 22:02 BP 134 / 88; Pulse 70; Resp 18; Temp 98.9; Pulse Ox 100% on R/A; Weight 83.91 kg; wg Height 5 ft. 1 in. (154.94 cm); Pain 7/10; 22:30 BP 118 / 69; Pulse 70; Resp 20; Temp 98.8; Pulse Ox 100% on R/A; cc4 05/12 01:15 BP 163 / 57; Pulse 73; Resp 20; Temp 98.6; Pulse Ox 100% on R/A; cc4 05/11 22:02 Body Mass Index 34.96 (83.91 kg, 154.94 cm) wg MDM: 01:05 Differential diagnosis: gastritis, viral gastroenteritis, gastroenteritis, Headache, mh7 viral syndrome, post vaccination reaction. Data reviewed: vital signs, nurses notes, lab test result(s), CBC, electrolytes, urinalysis, UPT: negative radiologic studies, CT scan. Data interpreted: Pulse oximetry: on room air is 100 %. Interpretation: normal. Counseling: I had a detailed discussion with the patient and/or guardian regarding: the historical points, exam findings, and any diagnostic results supporting the discharge/admit diagnosis, lab results, radiology results, the need for outpatient follow up. Response to treatment: the patient's symptoms have resolved after treatment, the patient's blood pressure is in an acceptable range, mental status has returned to baseline, the patient no longer shows bradycardia, the patient is not short of breath, the patient is not tachycardic, the patient's pain is gone, the patient's temperature has normalized. 01:08 Patient medically screened. [facility] 05/11 22:24 Order name: CBC with Diff; Complete Time: 23:33 [facility] 05/11 22:24 Order name: Basic Metabolic Panel; Complete Time: 23:33 [facility] 05/11 22:24 Order name: LFT's; Complete Time: 23:33 [facility] 05/11 22:35 Order name: Lipase; Complete Time: 23:33 [facility] 05/11 23:38 Order name: COVID-19/FLU A+B; Complete Time: 23:39 EDNM 05/11 23:46 Order name: Urine Dipstick-Ancillary; Complete Time: 23:47 EDMS 05/11 23:46 Order name: Urine --Ancillary (enter results); Complete Time: 00:15 [facility] 05/11 23:50 Order name: CT Head Brain wo Cont [facility] 05/11 23:51 Order name: Urine Microscopic Only [facility] 05/11 23:51 Order name: Urine Microscopic Only; Complete Time: 00:55 EDNM 05/12 00:53 Order name: Urine Culture [facility] 05/11 22:24 Order name: Urine Dipstick-Ancillary (obtain specimen); Complete Time: 02:01 [facility] 05/11 22:24 Order name: Urine Test (obtain specimen) [facility] 05/11 22:24 Order name: Saline Lock; Complete Time: 23:28 [facility] Administered Medications: 05/11 23:05 Drug: NS 0.9% 1000 ml Route: IV; Rate: 1000 ml; Site: right antecubital; 4 05/12 01:15 Follow up: IV Status: Completed infusion 4 05:03 Follow up: IV Intake: 1000ml [facility] 05/11 23:05 Drug: Reglan (metoCLOPramide) 10 mg Route: IVP; Site: right antecubital; 4 05/12 01:15 Follow up: Response: No adverse reaction 4 05/11 23:05 Drug: Benadryl (diphenhydrAMINE) 25 mg Route: IVP; Site: right antecubital; cc4 05/12 01:15 Follow up: Response: No adverse reaction 4 05/11 23:10 Drug: Tylenol 1000 mg Route: PO; cc4 05/12 01:15 Follow up: Response: No adverse reaction cc4 01:15 Follow up: Response: Pain is decreased cc4 00:25 Drug: Rocephin (cefTRIAXone) 1 grams Route: IV; Rate: per protocol; Site: right cc4 antecubital; 01:15 Follow up: Response: No adverse reaction cc4 Disposition Summary: 05/12/21 01:08 Discharge Ordered Location: Home [facility] Problem: new [facility] Symptoms: have improved [facility] Condition: Stable [facility] Diagnosis - Headache 7 - UTI/ Urinary tract infection, site not specified [facility] - Post vaccination reaction [facility] Followup: [facility] - With: Private Physician - When: 1 - 2 days - Reason: Worsening of condition, Recheck today's complaints, Continuance of care, Re-evaluation by your physician Discharge Instructions: - Discharge Summary Sheet [facility] - General Headache Without Cause [facility] - Urinary Tract Infection, Adult, [id number] [facility] - Frequently Asked Questions About COVID-19 Vaccination - [place] [id number] Forms: - Medication Reconciliation Form [facility] - Thank You Letter [facility] - Antibiotic Education [facility] - Prescription Opioid Use [facility] Prescriptions: - ondansetron 4 mg Oral tablet,disintegrating - place 1 tablet by TRANSLINGUAL route every 8 hours As needed; 10 tablet; 7 Refills: 0, Product Selection Permitted - Cephalexin 500 mg Oral Capsule - take 1 capsule by ORAL route every 12 hours for 7 days; 14 capsule; Refills: 0, 7 Product Selection Permitted Signatures: Dispatcher [employer] Man Cole MD MD [facility] Chinedu Chun RN wg Cooper, Christie, RN RN cc4 Corrections: (The following items were deleted from the chart) 05/11 22:56 22:25 CORONAVIRUS+MR.LAB.BRZ ordered. EDMS EDMS 22:56 22:25 Influenza Screen (A \T\ B)+BA.LAB.BRZ ordered. EDMS EDMS
--- NOTE | 2021-05-12 01:10 | ER ---
Nurse's Notes [facility] Name: Saskia Walker Age: 26 yrs Sex: Female : 1995 Arrival Date: 05/11/2021 Time: 21:59 Bed 23 Private MD: Diagnosis: Headache;UTI/ Urinary tract infection, site not specified;Post vaccination reaction Presentation: 05/11 22:02 Chief complaint: Patient states: Pt states she got the covid vaccine this morning at wg 1000am and woke up at 1600 with a headache, N/V and states her left arm where she got the shot is numb. Pt A\T\Ox4 with no neuro deficits other than the c/o numbness. Pt states she hasn't eaten and the emesis was a small amount. Pt seems very anxious and was told by her work tonight that they thought she might be having a reaction to the vaccine and to come get checked out. Pt denies fever/chills. Coronavirus screen: Vaccine status: Patient reports receiving the 1st dose of the Covid vaccine. Date May 11, 2021. Ebola Screen: Patient negative for fever greater than or equal to 101.5 degrees Fahrenheit, and additional compatible Ebola Virus Disease symptoms Patient denies exposure to infectious person. Patient denies travel to an Ebola-affected area in the 21 days before illness onset. Initial Sepsis Screen: Does the patient meet any 2 criteria? No. Patient's initial sepsis screen is negative. Does the patient have a suspected source of infection? No. Patient's initial sepsis screen is negative. Risk Assessment: Do you want to hurt yourself or someone else? Patient reports no desire to harm self or others. Onset of symptoms was May 11, 2021 at 16:00. 22:02 Method Of Arrival: Ambulatory wg 22:02 Acuity: AARON 3 wg Triage Assessment: 22:06 General: Appears in no apparent distress. well groomed, Behavior is cooperative, wg appropriate for age, anxious. Pain: Complains of pain in Frontal sinus area headache. Pain does not radiate. Pain currently is 7 out of 10 on a pain scale. Quality of pain is described as aching. Neuro: Reports numbness in left arm in the area where she got her covid vaccine. Cardiovascular: No deficits noted. Respiratory: No deficits noted. GI: Reports nausea, vomiting, Patient currently denies. 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 - Social history:: Smoking status: Patient denies any tobacco usage or history of. Patient uses alcohol, but reports only rare drinking. Screenin:30 Abuse screen: Denies threats or abuse. Nutritional screening: No deficits noted. cc4 Tuberculosis screening: No symptoms or risk factors identified. Fall Risk None identified. Assessment: 22:30 General: Appears in no apparent distress. Behavior is calm, cooperative. Pain: cc4 Complains of pain in left arm Pain does not radiate. Pain currently is 5 out of 10 on a pain scale. Quality of pain is described as aching, sore Pain began suddenly, with covi-19 vaccine today. Alleviated by nothing. Neuro: No deficits noted. Level of Consciousness is awake, alert, obeys commands, Oriented to person, place, time, situation. Cardiovascular: No deficits noted. Heart tones S1 S2. Respiratory: No deficits noted. Airway is patent Breath sounds are clear bilaterally. GI: Abdomen is obese, Bowel sounds present X 4 quads. Reports Reports vomiting x2 since receiving covid vaccine today. : No signs and/or symptoms were reported regarding the genitourinary system. EENT: No deficits noted. Eyes clear. Nares are clear. Derm: No deficits noted. Skin is intact, is healthy with good turgor. Musculoskeletal: No deficits noted. Capillary refill < 3 seconds, Range of motion: intact in all extremities, # 20 g saline lock inserted right AC x1 attempt with blood drawn \T\ sent to lab, robert. well; swabbed for covid-19 \T\ flu, robert. well with all spcimens sent to lab. 23:55 Reassessment: No changes from previously documented assessment. IV NS started right AC cc4 with # 20 g angiocath \T\ infusing \T\ bolus rate x 1 attempt with no difficulty, robert. well; medicated as ordered; urine specimen obtained \T\ sent to lab; BALJIT. 05/12 00:45 Reassessment: Patient appears in no apparent distress at this time. Patient states cc4 feeling better. Vital Signs: 05/11 22:02 BP 134 / 88; Pulse 70; Resp 18; Temp 98.9; Pulse Ox 100% on R/A; Weight 83.91 kg; wg Height 5 ft. 1 in. (154.94 cm); Pain 01/27; 22:30 BP 118 / 69; Pulse 70; Resp 20; Temp 98.8; Pulse Ox 100% on R/A; cc4 05/12 01:15 BP 163 / 57; Pulse 73; Resp 20; Temp 98.6; Pulse Ox 100% on R/A; cc4 05/11 22:02 Body Mass Index 34.96 (83.91 kg, 154.94 cm) wg ED Course: 05/11 20:30 Patient has correct armband on for positive identification. Bed in low position. Call cc4 light in reach. Side rails up X 1. 21:59 Patient arrived in ED. cf2 22:06 Triage completed. wg 22:06 Arm band placed on right wrist. wg 22:10 Man Bates MD is Attending Physician. [facility] 22:31 Akanksha Child, RADHA is Primary Nurse. cc4 05/12 00:12 CT Head Brain wo Cont In Process Unspecified. EDMS 00:39 Urine Microscopic Only Sent. cc4 00:39 Urine Microscopic Only Sent. cc4 01:15 IV discontinued, intact, bleeding controlled, No redness/swelling at site. Pressure cc4 dressing applied. 01:15 No provider procedures requiring assistance completed. cc4 Administered Medications: 05/11 23:05 Drug: NS 0.9% 1000 ml Route: IV; Rate: 1000 ml; Site: right antecubital; cc4 05/12 01:15 Follow up: IV Status: Completed infusion cc4 05:03 Follow up: IV Intake: 1000ml cc4 05/11 23:05 Drug: Reglan (metoCLOPramide) 10 mg Route: IVP; Site: right antecubital; cc4 05/12 01:15 Follow up: Response: No adverse reaction cc4 05/11 23:05 Drug: Benadryl (diphenhydrAMINE) 25 mg Route: IVP; Site: right antecubital; cc4 05/12 01:15 Follow up: Response: No adverse reaction cc4 05/11 23:10 Drug: Tylenol 1000 mg Route: PO; cc4 05/12 01:15 Follow up: Response: No adverse reaction cc4 01:15 Follow up: Response: Pain is decreased cc4 00:25 Drug: Rocephin (cefTRIAXone) 1 grams Route: IV; Rate: per protocol; Site: right cc4 antecubital; 01:15 Follow up: Response: No adverse reaction cc4 Intake: 05:03 IV: 1000ml; Total: 1000ml. cc4 Outcome: 01:08 Discharge ordered by . thi 01:15 Discharged to home ambulatory. cc4 01:15 Condition: improved 01:15 Discharge instructions given to patient, Instructed on discharge instructions, follow up and referral plans. medication usage, Demonstrated understanding of instructions, follow-up care, medications, Prescriptions given X 3. 02:03 Patient left the ED. cc4 Signatures: Dispatcher [employer] EDMS Jorge Luis Escobar cf2 Man Bates MD MD 7 Chinedu Chun RN Akanksha Child RN RN cc4 Corrections: (The following items were deleted from the chart) 05/11 20:30 GI: Abdomen is obese, Bowel sounds present X 4 quads. Abd is soft and non tender cc4 X 4 quads. cc4 : 20:30 General: Appears in no apparent distress. Behavior is calm, cooperative, cc4 cc4 20:30 Neuro: No deficits noted. Level of Consciousness is awake, alert, obeys commands, cc4 Oriented to person, place, time, situation, cc4 20:30 Cardiovascular: No deficits noted. Denies chest pain, cc4 cc4 20:30 Respiratory: No deficits noted. Airway is patent Breath sounds are clear cc4 bilaterally. cc4 : 20:30 : No signs and/or symptoms were reported regarding the genitourinary system. cc4cc4 20:30 EENT: No deficits noted. Eyes clear. Nares are clear cc4 cc4 20:30 Derm: No deficits noted. Skin is intact, cc4 cc4 20:30 Musculoskeletal: No deficits noted. Capillary refill < 3 seconds, Range of cc4 motion: intact in all extremities, cc4 10/23 01:59 05/11 20:30 BP 118 / 69; Pulse 70bpm; Resp 20bpm; Pulse Ox 100% RA; Temp 98.8F; cc4 cc4
[2021-05-12 02:16] VITALS: O2SAT 100
[2021-05-12 02:19] VITALS: BP 163/57; TEMP 98.6
--- NOTE | 2021-05-13 09:53 | RAD REPORT ---
EXAM DESCRIPTION: CT - Head Brain Wo Cont - 05/12/2021 6:19 am CLINICAL HISTORY: The patient is 26 years old and is Female; HEADACHE TECHNIQUE: Axial computed tomography images of the head/brain without intravenous contrast. Sagitt al and coronal reformatted images were created and reviewed. This CT exam was performed using one o r more of the following dose reduction techniques: automated exposure control, adjustment of the mA and/or kV according to patient size, and/or use of iterative reconstruction technique. COMPARISON: No relevant prior studies available. FINDINGS: Brain: Unremarkable. No hemorrhage. No significant white matter disease. No edema. Ventricles: Unremarkable. No ventriculomegaly. Bones/joints: Unremarkable. No acute fracture. Soft tissues: Unremarkable. Sinuses: Unremarkable as visualized. Mastoid air cells: Unremarkable as visualized. No mastoid effusion. IMPRESSION: No acute intracranial abnormality. Electronically signed by: Bennett Jacob MD 05/12/2021 12:31 AM CDT Due to temporary technical issues with the PACS/Fluency reporting system, reports are being signed by the in house radiologists without review as a courtesy to insure prompt reporting. The interpreting radiologist is fully responsible for the content of the report.
== END 2021-05-12 02:03 | disposition home or self-care (01) ==
LOC: ER 21:55
DX: N39.0 Urinary tract infection, site not specified (principal); R51.9 Headache, unspecified; T50.B95A Adverse effect of other viral vaccines, initial encounter
CPT/HCPCS: 0240U; 36415; 70450; 80048; 80076; 81003; 81015; 81025; 83690; 85025; 87086; 87088; 96361; 96374; 96375; 99284; J1200; J2765; J7030

== ENCOUNTER 2022-04-08 09:32 | Emergency (ER) | payer OTHER, SELFPAY ==
--- OUTSIDE RECORDS SUMMARY | 2022-04-08 09:37 | XMS REPORT | Continuity of Care Document ---
:[address] [facility] t Address [address] [place] [address] Care Team Providers Name Role Phone SAVAGE PEÑA Primary Care Physician Unavailable SAVAGE PEÑA Attending Clinician Unavailable Visit, Ang-Rmchcodie Nurse Attending Clinician Unavailable Sandra Jo Attending Clinician [phone] SANDRA MARIE Attending Clinician Unavailable LETTY YI Attending Clinician Unavailable Domenico Marie DO Attending Clinician Letty Yi MD Attending Clinician [phone] Savage Lozano Attending Clinician LETTY YI Admitting Clinician Unavailable Letty Yi MD Admitting Clinician [phone] Payers Payer Name Policy Type Policy Number Effective Date Expiration Date [facility] [id number] 2021 CHOICE MEDICAID 00:00:00 Problems Condition Condition Condition Status Onset Resolution Last Treating Co mments Source Name Details Category Date Date Treatment Clinician Date 39 weeks 39 weeks Disease Active Unive rs gestation gestation 8 ity of of of 00:00: [place] 00 [facility] Obesity Obesity Disease Active Univers (BMI (BMI 8-01 ity of 30-39.9) 30-39.9) 00:00: 00 [facility] Branch BMI BMI Disease Active 2020-07 Univers 39.0-39.9, 39.0-39.9, 2-16 it y of adult adult 00:00: [place] 00 [facility] Maternal Maternal Disease Active Unive rs gonorrhea, gonorrhea, 04-15 it y of ante[place] ante[place] first , first 00 Medical trimester trimester Bran ch Supervisio Supervisio Disease Active U nivers n of high n of high 9- ity of risk risk 00:00: [place] , , 00 Me dical antepartum antepartum Br anch Previous Previous Disease Active Overview: Un damian 04-14 Formattin ity of delivery delivery 00:00: g of this Seng as affecting affecting 00 note [facility] might be Br anch different from the original. External records received and reviewed showing pt had ERCS with low transvers e incision at [facility] on 11/19/[address] Linda Multiparit Multiparit Disease Active U nivers y y - ity of 00:00: [place] [facility] Obesity in Obesity in Disease Active U nivers 9- ity of 00:00: [facility] Maternal Maternal Disease Active Overview: Un damian varicella, varicella, 12-12 Formattin ity of non-immune non-immune 00:00: g of this [place] 00 note Medical might be Branch different from the original. Address in PP. Need for Need for Disease Active Unive rs Tdap Tdap 2-16 ity of vaccinatio vaccin[place] 00 [facility] [place] Allergies, Adverse Reactions, Alerts Allergy Allergy Status Severity Reaction(s) Onset Inactive Treating Comm ents Source Name Type Date Date Clinician NO KNOWN Drug Active Univers ALLERGIE Class ity of S [facility] Social History Social Habit Start Date Stop Date Quantity Comments Source ASSERTION 2021-06-04 University of 00:00:00 [facility] Exposure to 2022-02-19 2022-03-01 Not sure [facility] SARS-CoV-2 00:00:00 13:46:00 [facility] (event) Branch Alcohol intake 2022-03-01 2022-03-01 0 /d [facility] 00:00:00 00:00:00 [facility] Tobacco use and 2022-02-04 2022-02-04 Smokeless tobacco Un iversity of exposure 00:00:00 00:00:00 non-user [facility] Sex Assigned At [birth year] Universit y of 00:00:00 00:00:00 [facility] Smoking Status Start Date Stop Date Source Never smoked tobacco [facility] Medications Ordered Filled Start Stop Current Ordering Indication Dosage Frequency Signature Comments Components Source Medication Medication Date Date Medication? Clinician (SIG) Name Name phyllis(Telly) Yes 300ug 300 mcg, Univer s immune 02-19 Intramuscu ity of globulin 00:40: lar, ONCE, Seng as (RHOGAM) 14 For 1 Medical syringe 300 dose, Branch mcg Conditiona l, Routine rho(D) Yes 300ug 300 mcg, Univer s immune 02-19 Intramuscu ity of globulin 00:40: lar, ONCE, Seng as (RHOGAM) 14 For 1 Medical syringe 300 dose, Branch mcg Conditiona l, Routine HYDROcodone Yes 2{tbl} 2 tablet, Univers -acetaminop 02-19 Oral, ity of hen (NORCO 00:40: Q6HPRN, [place] 5) 5-325 mg 09 Starting Medi katelin tablet 2 on Mon Branch tablet 02/18/22 at 1940, Until Discontinu ed, Routine, Pain (scale 7-10), Alternate with Ibuprofen HYDROcodone Yes 1{tbl} 1 tablet, Univers -acetaminop 02-19 Oral, ity of hen (NORCO 00:40: Q6HPRN, [place] 5) 5-325 mg 09 Starting Medi katelin tablet 1 on Mon Branch tablet 02/18/22 at 1940, Until Discontinu ed, Routine, Pain (scale 4-6), Alternate with Ibuprofen ibuprofen Yes 600mg 600 mg, Univ ers (IBU) 02-19 Oral, ity of tablet 600 00:40: Q6HPRN, [place] mg 09 Starting Medical on Mon Branch 02/18/22 at 1940, Until Discontinu ed, Routine, Pain (scale 1-3) diphenhydrA 2021-0 Yes 25mg 25 mg, Univ ers MINE 02-19 Slow IV ity of (BENADRYL) 00:40: Push, [place] injection 09 Q6HPRN, Medical 25 mg Starting Branch on Fri02/18/22 at 1940, Until Discontinu ed, Routine, Itching diphenhydrA 2021-0 Yes 25mg 25 mg, Univ ers MINE 02-19 Oral, ity of (BENADRYL) 00:40: Q6HPRN, [place] tablet 25 09 Starting Medica l mg on Fri02/18/22 at 1940, Until Discontinu ed, Routine, Sleep, Itching ondansetron 2021-0 Yes 4mg 4 mg, Slow Univers (ZOFRAN 02-19 IV Push, ity of (PF)) 00:40: Q8HPRN, [place] injection 4 09 Starting Medi katelin mg on Fri02/18/22 at 1940, Until Discontinu ed, Routine, Nausea and Vomiting (N/V) bisacodyL 2021-0 Yes 10mg 10 mg, Univer s (DULCOLAX) 02-19 Rectal, ity of suppository 00:40: [facility] [place] 10 mg 09 Starting Medical on Fri02/18/22 at 1940, Until Discontinu ed, Routine, Constipati on simethicone 2021-0 Yes 160mg 160 mg, Un damian (GAS RELIEF 02-19 Oral, ity of (SIMETHICON 00:40: PC+HSPRN, [place] E)) 09 Starting Medical chewable on Fri tablet 160 02/18/22 at mg 1940, Until Discontinu ed, Routine, Gas docusate 2021-0 Yes 200mg 200 mg, Unive rs (COLACE) 02-19 Oral, ity of capsule 200 00:40: QDAILYPRN, [place] mg 09 Starting Medical on Fri02/18/22 at 1940, Until Discontinu ed, Routine, Constipati on magnesium 2021-0 Yes 30mL 30 mL, Univer s hydroxide 02-19 Oral, ity of (MILK OF 00:40: QDAILYPRN, Seng as MAGNESIA) 09 Starting Medica l 400 mg/5 mL on Fri Branch suspension 02/18/22 at 30 mL 1940, Until Discontinu ed, Routine, Constipati on HYDROcodone 2021-0 Yes 2{tbl} 2 tablet, Univers -acetaminop 02-19 Oral, ity of hen (NORCO 00:40: Q6HPRN, [place] 5) 5-325 mg 09 Starting Medi katelin tablet 2 on Fri Branch tablet 02/18/22 at 1940, Until Discontinu ed, Routine, Pain (scale 7-10), Alternate with Ibuprofen HYDROcodone 2021-0 Yes 1{tbl} 1 tablet, Univers -acetaminop 02-19 Oral, ity of hen (NORCO 00:40: Q6HPRN, [place] 5) 5-325 mg 09 Starting Medi katelin tablet 1 on Fri Branch tablet 02/18/22 at 1940, Until Discontinu ed, Routine, Pain (scale 4-6), Alternate with Ibuprofen ibuprofen 2021-0 Yes 600mg 600 mg, [facility] ers (IBU) 02-19 Oral, ity of tablet 600 00:40: Q6HPRN, [place] mg 09 Starting Medical on Fri Branch 02/18/22 at 1940, Until Discontinu ed, Routine, Pain (scale 1-3) diphenhydrA 2021-0 Yes 25mg 25 mg, Univ ers MINE 02-19 Slow IV ity of (BENADRYL) 00:40: Push, [place] injection 09 Q6HPRN, Medical 25 mg Starting Branch on Fri02/18/22 at 1940, Until Discontinu ed, Routine, Itching diphenhydrA 2-0 Yes 25mg 25 mg, [facility] [place] [facility] MINE 02-19 Oral, ity of (BENADRYL) 00:40: Q6HPRN, [place] tablet 25 09 Starting Medica l mg on Fri Branch 02/18/22 at 1940, Until Discontinu ed, Routine, Sleep, Itching ondansetron 2021-0 Yes 4mg 4 mg, Slow Univers (ZOFRAN 02-19 IV Push, ity of (PF)) 00:40: Q8HPRN, [place] injection 4 09 Starting Medi katelin mg on Fri Branch 02/18/22 at 1940, Until Discontinu ed, Routine, Nausea and Vomiting (N/V) bisacodyL Yes 10mg 10 mg, Univer s (DULCOLAX) 02-19 Rectal, ity of suppository 00:40: QDAILYPRN, [place] 10 mg 09 Starting Medical on Fri Branch 02/18/22 at 1940, Until Discontinu ed, Routine, Constipati on simethicone Yes 160mg 160 mg, Un damian (GAS RELIEF 02-19 Oral, ity of (SIMETHICON 00:40: PC+HSPRN, [place] E)) 09 Starting Medical chewable on Fri tablet 160 02/18/22 at mg 1940, Until Discontinu ed, Routine, Gas docusate Yes 200mg 200 mg, Unive rs (COLACE) 02-19 Oral, ity of capsule 200 00:40: QDAILYPRN, [place] mg 09 Starting Medical on Fri Branch 02/18/22 at 1940, Until Discontinu ed, Routine, Constipati on magnesium Yes 30mL 30 mL, Univer s hydroxide 02-19 Oral, ity of (MILK OF 00:40: QDAILYPRN, [place] MAGNESIA) 09 Starting Medica l 400 mg/5 mL on Fri suspension 02/18/22 at 30 mL 0, Until Discontinu ed, Routine, Constipati on Yes [id number] 1{tbl} Take 1 Univers [id number] 02-19 tablet by ity of fum-folic 00:00: mouth in [place] [facility] () 00 the Medical 27 mg iron- morning. Bran ch 1 mg folic tablet docusate Yes [id number] 200mg Take 2 U nivers 100 mg 02-19 capsules ity of capsule 00:00: by mouth [place] 00 once daily Medical as needed Branch for Constipati on. ferrous Yes [id number] 325mg Take 1 Un damian sulfate 325 02-19 tablet by ity of mg (65 mg 00:00: mouth [facility] the Medical tablet morning Branch and 1 tablet in the evening. ibuprofen Yes [id number] 600mg Take 1 Univers 600 mg 02-19 tablet by ity of tablet 00:00: mouth [place] 00 every 6 Medical (six) Branch hours as needed (Pain). Take with food or milk. Yes [id number] 1{tbl} Take 1 Univers [id number] 8-02 tablet by ity of fum-folic 00:00: [place] () 00 the Medical 27 mg iron- morning. Bran ch 1 mg folic tablet docusate Yes [id number] 200mg Take 2 U nivers 100 mg 8-02 capsules ity of capsule 00:00: by mouth [place] 00 once daily Medical as needed Branch for Constipati on. ferrous Yes [id number] 325mg Take 1 Un damian sulfate 325 8-02 tablet by ity of mg (65 mg 00:00: [place] iron) 00 the Medical tablet morning Branch and 1 tablet in the evening. ibuprofen Yes [id number] 600mg Take 1 Univers 600 mg 8-02 tablet by ity of tablet 00:00: mouth [place] 00 every 6 Medical (six) Branch hours as needed (Pain). Take with food or milk. Yes [id number] 1{tbl} Take 1 Univers [id number] 8-02 tablet by ity of fum-folic 00:00: [place] () 00 the Medical 27 mg iron- morning. Bran ch 1 mg folic tablet docusate Yes [id number] 200mg Take 2 U nivers 100 mg 8-02 capsules ity of capsule 00:00: by mouth [place] 00 once daily Medical as needed Branch for Constipati on. ferrous Yes [id number] 325mg Take 1 Un damian sulfate 325 8-02 tablet by ity of mg (65 mg 00:00: mouth [place] iron) 00 the Medical tablet morning Branch and 1 tablet in the evening. ibuprofen Yes [id number] 600mg Take 1 Univers 600 mg 8-02 tablet by ity of tablet 00:00: mouth [place] 00 every 6 Medical (six) Branch hours as needed (Pain). Take with food or milk. HYDROcodone 0 2021- Yes [id number] 1{tbl} Take 1 U nivers -acetaminop 8-02 08-10 tablet by it y of hen 5-325 00:00: 04:59 mouth [place] mg tablet 00 :00 every 6 Medical (six) Branch hours as needed for Pain (scale 4-6) or Pain (scale 7-10) (Pain scale above 4) for up to 7 days. Do not exceed 3 grams of acetaminop hen in 24 hours. Indication s: acute pain HYDROcodone 2021-0 202- Yes [id number] 1{tbl} Take 1 U nivers -acetaminop 02-19 08-10 tablet by it y of hen 5-325 00:00: 04:59 mouth [place] mg tablet 00 :00 every 6 Medical (six) Branch hours as needed for Pain (scale 4-6) or Pain (scale 7-10) (Pain scale above 4) for up to 7 days. Do not exceed 3 grams of acetaminop hen in 24 hours. Indication s: acute pain ketorolac 2021-0 Yes 30mg 30 mg, Univer s (TORADOL) 02-18 Slow IV ity of injection 20:59: Push, [place] 30 mg 48 Q6HPRN, 4 Medical doses, Branch Starting on Fri02/18/22 at 1559, Until Discontinu ed, Routine, Pain (scale 1-3), PACU naloxone 2021-0 Yes .2mg 0.2 mg, Univer s (NARCAN) 02-18 Intramuscu ity o f injection 20:59: lar, [place] 0.2 mg 48 Q3HPRN, Medical Starting Branch on Fri02/18/22 at 1559, Until Discontinu ed, Routine, Itching, PACU ketorolac 2021-0 Yes 30mg 30 mg, Univer s (TORADOL) 02-18 Slow IV ity of injection 20:59: Push, [place] 30 mg 48 Q6HPRN, 4 Medical doses, Branch Starting on Fri02/18/22 at 1559, Until Discontinu ed, Routine, Pain (scale 1-3), PACU naloxone 2021-0 Yes .2mg 0.2 mg, Univer s (NARCAN) 02-18 Intramuscu ity o f injection 20:59: lar, [place] 0.2 mg 48 Q3HPRN, Medical Starting Branch on Fri02/18/22 at 1559, Until Discontinu ed, Routine, Itching, PACU naloxone 2021-0 202- Yes .4mg 0.4 mg, Unive rs (NARCAN) 02-18 Slow IV ity of injection 20:59: 20:58 [place], [place]N [place] 0.4 mg 48 :48 - SEE [facility], Starting on Fri02/18/22 at 1559, Until Fri02/20/22 at 1558, Routine, Analgesia Recovery, PACU naloxone 2021- Yes .4mg 0.4 mg, Unive rs (NARCAN) 02-18 Slow IV ity of injection 20:59: 20:58 [place], [place]N [place] 0.4 mg 48 :48 - SEE [facility], Starting on Fri02/18/22 at 1559, Until Fri02/20/22 at 1558, Routine, Analgesia Recovery, PACU diphenhydrA 2021- No 25mg 25 mg, Uni vers MINE 02-18 Slow IV ity of (BENADRYL) 20:59: 00:44 Push, [place] injection 48 :44 Q4HPRN, Medical 25 mg Starting Branch on Fri02/18/22 at 1559, Until Fri02/18/22 at 1944, Routine, Itching, PACU oxytocin 2021- No 300mL/h 300 mL/hr, Univers (PITOCIN) 02-18 IV ity of 30 units in 18:24: 21:00 Infusion, [place] NS 500 mL 05 :02 SEE-INSTRU Medi katelin IV infusion CTIONS, Branc h Starting on Fri02/18/[address] at 300 mL/hr for 1 hr then 150 mL/hr for 1 hr. & nbsp; For post delivery uterotonic
acetaminoph 2021- No 650mg 650 mg, U nivers en 02-18 Oral, ity of (TYLENOL) 12:15: 14:23 ONCE, 1 [place] tablet 650 00 :00 dose, On Medic al mg Fri02/18/22 Branch at 0715, Routine lactated 2021- No 1000mL at 125 Univ ers ringers IV 02-18 mL/hr, ity of infusion 12:15: 18:29 1,000 mL, Seng as 1,000 mL 00 :31 IV Medical Infusion, Branch CONTINUOUS , Starting on Fri02/18/22 at 0715, Until Fri02/18/22 at 1329, Routine ceFAZolin 2021- No 2000mg 2 g (2,000 Univers in 0.9% 02-18 mg), IV ity of sodium 12:07: 17:02 Piggyback, [place] chloride 37 :00 O.R. Medical (ANCEF) 2 HOLDING Branch gram/100 mL ONCE, 1 RTU 2 g dose, Starting on Fri02/18/22 at 0707, Until Discontinu ed, Administer over 30 Minutes, 100 mL
Reas on for Anti-Infec tive: Surgical Prophylaxi s
Spicer rgical Prophylaxi s: LEG MAN
Duration of therapy: within 24 hours of surgery 2020-07 Yes [id number] 1{packe Take 1 Univers vit 2-16 t} Packet by ity of 33-iron-fol 00:00: mouth [place] ic-dha 00 daily. Medical (SELECT-OB Branch + DHA) 29 mg iron-1 mg -250 mg combo pack 2020-07 Yes [id number] 1{packe Take 1 Univers vit 2-16 t} Packet by ity of 33-iron-fol 00:00: mouth [place] ic-dha 00 daily. Medical (SELECT-OB Branch + DHA) 29 mg iron-1 mg -250 mg combo pack 2020-07- No [id number] 1{packe Take 1 Univers vit 2-16 08-02 t} Packet by ity of 33-iron-fol 00:00: 00:00 [place] ic-dha 00 :00 daily. Medical (SELECT-OB Branch + DHA) 29 mg iron-1 mg -250 mg combo pack 2020-07- No [id number] 1{packe Take 1 Univers vit 2-16 08-02 t} Packet by ity of 33-iron-fol 00:00: 00:00 mouth [place] ic-dha 00 :00 daily. Medical (SELECT-OB Branch + DHA) 29 mg iron-1 mg -250 mg combo pack Immunizations Ordered Filled Immunization Date Status Comments [facility] e Immunization Name Name TDAP 2021-12-12 Completed University 00:00:00 [facility] TDAP 2021-12-12 Completed University of 00:00:00 [facility] TDAP 2021-12-12 Completed University of 00:00:00 [facility] TDAP 2021-12-12 Completed University of 00:00:00 [facility] TDAP 2021-12-12 Completed University of 00:00:00 [facility] SARS-COV-2 COVID-19 2021-05-09 Completed Unive rsity of MODERNA VACCINE 00:00:00 [facility] SARS-COV-2 COVID-19 2021-05-09 Completed Unive rsity of MODERNA VACCINE 00:00:00 [facility] SARS-COV-2 COVID-19 2021-05-09 Completed Unive rsity of MODERNA VACCINE 00:00:00 [facility] SARS-COV-2 COVID-19 2021-05-09 Completed Unive rsity of MODERNA VACCINE 00:00:00 [facility] SARS-COV-2 COVID-19 2021-05-09 Completed Unive rsity of MODERNA VACCINE 00:00:00 [facility] TDAP 2015-09-05 Completed University of 00:00:00 [facility] TDAP 2015-09-05 Completed University of 00:00:00 [facility] TDAP 2015-09-05 Completed University of 00:00:00 [facility] TDAP 2015-09-05 Completed University of 00:00:00 [facility] TDAP 2015-09-05 Completed University of 00:00:00 [facility] Td 2010-02-20 Completed University of 00:00:00 [facility] Td 2010-02-20 Completed University of 00:00:00 [facility] Td 2010-02-20 Completed University of 00:00:00 [facility] Td 2010-02-20 Completed University of 00:00:00 [facility] Td 2010-02-20 Completed University of 00:00:00 [facility] Vital Signs Vital Name Observation Time Observation Value Comments Source Systolic blood 2022-03-01 18:46:00 104 mm[Hg] Univer sity of pressure [facility] Diastolic blood 2022-03-01 18:46:00 67 mm[Hg] Unive rsity of pressure [facility] Heart rate 2022-03-01 18:46:00 71 /min [facility] [place] [facility] Body temperature 2022-03-01 18:46:00 36.78 Ramona Univ ers[facility] [place] [facility] Respiratory rate 2022-03-01 18:46:00 16 /min Univ ers[facility] [place] [facility] Body height 2022-03-01 18:46:00 162.6 cm [facility] [place] [facility] Body weight 2022-03-01 18:46:00 86.002 kg [facility] [place] [facility] BMI 2022-03-01 18:46:00 32.54 kg/m2 [facility] [place] [facility] Systolic blood 2022-02-19 22:14:00 129 mm[Hg] Univer sity of pressure [place] [facility] Diastolic blood 2022-02-19 22:14:00 80 mm[Hg] Unive rsity of pressure [place] [facility] Heart rate 2022-02-19 22:14:00 77 /min [facility] [place] [facility] Body temperature 2022-02-19 22:14:00 36.39 Ramona Univ ersity [facility] [place] [facility] Respiratory rate 2022-02-19 22:14:00 18 /min Univ ersity [facility] [place] [facility] Oxygen saturation in 2022-02-19 22:14:00 99 /min University of Arterial blood by [place] [employer] katelin Pulse oximetry Branch Body height 2022-02-18 12:19:00 162.6 cm [facility]i ty [facility] [place] [facility] Body weight 2022-02-18 12:19:00 97.659 kg Universi ty [facility] [place] [facility] BMI 2022-02-18 12:19:00 36.94 kg/m2 [facility] [place] [facility] Systolic blood 2022-02-18 13:45:00 127 mm[Hg] Univer sity of pressure [place] [facility] Diastolic blood 2022-02-18 13:45:00 71 mm[Hg] Unive rsity of pressure [place] [facility] Heart rate 2022-02-18 13:45:00 85 /min Universi ty [facility] [place] [facility] Oxygen saturation in 2022-02-18 13:45:00 100 /min University of Arterial blood by [place] Medi katelin Pulse oximetry Branch Body temperature 2022-02-18 12:19:00 36.56 Ramona Univ ersity [facility] [place] [facility] Respiratory rate 2022-02-18 12:19:00 16 /min [facility] height 2022-02-18 12:19:00 162.6 cm Universi ty [facility] Body weight 2022-02-18 12:19:00 97.659 kg Universi ty [facility] BMI 2022-02-18 12:19:00 36.94 [facility] Systolic blood 2022-02-14 16:09:00 115 mm[Hg] Univer sity of pressure [facility] Diastolic blood 2022-02-14 16:09:00 67 mm[Hg] [facility] Heart rate 2022-02-14 16:09:00 82 /min Universi ty [facility] Body temperature 2022-02-14 16:09:00 36.78 [facility] Respiratory rate 2022-02-14 16:09:00 20 /min [facility] Body height 2022-02-14 16:09:00 162.6 cm Universi ty [facility] Body weight 2022-02-14 16:09:[address] [facility] BMI 2022-02-14 16:09:00 36.14 kg/m2 [facility] Procedures Procedure Date / Time Performing Clinician Source Performed CBC WITH DIFF 2022-02-19 07:57:00 [facility] CBC WITH DIFF 2022-02-19 07:57:00 [facility] VENOUS CORD GAS 2022-02-18 19:59:00 Kami Purcell [facility] VENOUS CORD GAS 2022-02-18 19:59:00 Kami Purcell [facility] SECTION 2022-02-18 18:03:00 Jeanne Silva [facility] TUBAL LIGATION 2022-02-18 18:03:00 Jeanne Silva [facility] SECTION 2022-02-18 18:03:00 Jeanne Silva [facility] TUBAL LIGATION 2022-02-18 18:03:00 Jeanne Silva [facility] Real Medical Branch CBC WITH DIFF 2022-02-18 13:35:00 Binh Kami [facility] HEPATITIS B SURFACE 2022-02-18 13:35:00 [facility] ANTIGEN [facility] GALV ONLY - SYPHILIS 2022-02-18 13:35:[facility]IGM [facility] CBC WITH DIFF 2022-02-18 13:35:00 Binh Kami [facility] HEPATITIS B SURFACE 2022-02-18 13:35:00 [facility]h [facility] ANTIGEN [facility] GALV ONLY - SYPHILIS 2022-02-18 13:35:00 Binh [facility] IGG/IGM [facility] Branch HB ABO GROUPING 2022-02-18 13:00[facility] GLOBULIN 2022-02-18 13:00:00 Remigio [facility] HB ABO GROUPING 2022-02-18 13:00[facility]MMUNE GLOBULIN 2022-02-18 13:00:00 Remigio [facility] COVID-19 (ID NOW RAPID 2022-02-18 12:24:00 Arcelia Yi [facility] TESTING) Real Medical Branch LAB ONLY COVID 2022-02-18 12:24:00 Jeanne Silva [facility] INTERPRETATION [facility] COVID-19 (ID NOW RAPID 2022-02-18 12:24:00 Jeanne Silva [facility] TESTING) Real Medical Branch LAB ONLY COVID 2022-02-18 12:24:00 Jeanne Silva [facility] INTERPRETATION Real Medical Branch POCT URINALYSIS 2022-02-14 16:13:00 Savage Peña [facility] Encounters Start End Encounter Admission Attending Care Care Encounter Source Date/Time Date/Time Type Type Clinicians Facility Department ID 2022-03-28 2022-03-28 Outpatient R MARIANA [facility] [id number] Univers 08:00:00 08:00:00 SAVAGE [id number] joely o [facility] 2022-03-28 2022-03-28 Outpatient Valentine PEÑA [facility] [id number] Univers 08:00:00 08:00:00 SAVAGE maldonadoy o [facility] 2022-03-01 2022-03-01 Nurse Visit, Ang-Rmchp Nurse [facility] [id number] Univers 13:30:00 14:00:08 Visit Sandra Marie LEG MAN [id number] ity [facility] [id number] Seng as MATERNAL [id number] [facility] & CHILD [address] [place] [address] 2022-03-01 2022-03-01 Outpatient R [facility] [id number] Univers 13:30:00 13:30:00 [id number] ity [facility] 2022-03-01 2022-03-01 [id number] Univers 13:30:00 13:30:00 SANDRA yesenia o [facility] 2022-02-18 2022-02-19 Inpatient P JEANNE [facility] ZAIRA [id number] Univers 06:56:00 17:53:00 VIOLET it y of LETTY Allen [facility] 2022-02-18 2022-02-19 [facility] Domenico Marie [id number] Univers 06:56:00 17:53:00 Encounter Casey Letty Silva 350. 1.13.10 ity [facility] [id number] Seng as [id number] [address] 2022-02-18 2022-02-18 Surgery Jeanne BAEZ [id number] Univers 07:15:00 08:56:00 Violet HAMILTON 350.1.13.10 ity [facility] 4.2.7.2.686 Seng as [id number] [address] 2022-02-14 2022-02-14 [facility] [id number] Univers 10:45:00 11:22:58 SANDRA patterson o yumi [facility] 2022-02-14 2022-02-14 [facility] [id number] Univers 10:45:00 11:22:58 Sandra C LEG MAN 350.1.13.10 ity of Visit REGIONAL 4.2.7.2.686 Seng as MATERNAL [id number] [facility] CHILD [address] [place] [address] 2022-02-06 2022-02-06 Outpatient [facility] [id number] Univers 12:45:00 12:45:00 NANCYMALIK maldonadoisidoro maxx [facility] 2022-02-05 2022-02-05 Telephone [facility] [id number] Univers 00:00:00 00:00:00 Nancymalik Grijalva LEG MAN 350.1.13.10 ity of [facility] 4.2.7.2.686 Seng as MATERNAL [id number] [address] 2022-01-18 2022-01-18 Outpatient [facility] [id number] Univers 10:45:00 11:00:04 [facility] Results Test Description Test Time Test Comments Results Result Comments Source GALV ONLY - SYPHILIS IGG/IGM 2022-02-19 15:04:24 Test Item Value Reference Range Interpretation Comme nts Syphilis IgG/IgM (test code = Non-reactive Non-reactive 10801-4) KAYODE (test code = KAYODE) Non-reactive - No serologic evidence of T. pallidum infection. Cannot exclude incubating or early syphilis. Submit a second specimen in 2-4 weeks if syphilis is clinically suspected. Equivocal - Further testing to follow. Reactive - Further testing to follow. Lab Interpretation (test code = Normal 29884-4) [id number] 15:04:24 Test Item Value Reference Range Interpretation Comments Syphilis IgG/IgM (test Non-reactive Non-reactive code = 98801-8) KAYODE (test code = KAYODE) Non-reactive - No serologic evidence of T. pallidum infection. Cannot exclude incubating or early syphilis. Submit a second specimen in 2-4 weeks if syphilis is clinically suspected. Equivocal - Further testing to follow. Reactive - Further testing to follow. Lab Interpretation (test Normal code = 87728-0) [facility] (D) IMMUNE [id number] 00:41:39 Test Item Value Reference Range Interpretation Comments RHIG CANDIDATE? No- see comment Patient i s not a (test code = candidate for R hIg- 5055) Patient is Rh Positive.Perfor med at [facility] Laboratory Services - [facility] Blood [address] [place] [address] Free: [phone] A No. [id number] [facility] (D) IMMUNE [id number] 00:41:39 Test Item Value Reference Range Interpretation Comments RHIG CANDIDATE? No- see comment Patient i s not a (test code = candidate for R hIg- 5055) Patient is Rh Positive.Perfor med at [facility] Laboratory Services - [facility] Blood [address] [place] [address] Free: [phone] A No. [id number] [facility] [id number] 20:16:54 Test Item Value Reference Range Interpretation Comments VENOUS BASE EXCESS, mEq/L CORD (test code = 0328865053) VENOUS PH, CORD (test 7.25-7.45 code = 4841799795) VENOUS PC02, CORD See_Comment [Automate d message] The (test code = system which ge nerated 2147794088) this result tra nsmitted reference range : 27 - 49 mmHg. The refer ence range was not used to interpret this result as normal/abnormal . VENOUS PO2, CORD (test See_Comment [Aut omated message] The code = 0276923149) system wh ich generated this result tra nsmitted reference range : 17 - 41 mmHg. The refer ence range was not used to interpret this result as normal/abnormal . VENOUS BICARBONATE, See_Comment [Automa irina message] The CORD (test code = system whi ch generated 6795935642) this result tra nsmitted reference range : 12 - 29 mEq/L. The refe rence range was not used to interpret this result as normal/abnormal . [facility] [id number] 20:16:54 Test Item Value Reference Range Interpretation Comments VENOUS BASE EXCESS, mEq/L CORD (test code = 1039348708) VENOUS PH, CORD (test 7.25-7.45 code = 2291843653) VENOUS PC02, CORD See_Comment [Automate d message] The (test code = system which ge nerated 3759043321) this result tra nsmitted reference range : 27 - 49 mmHg. The refer ence range was not used to interpret this result as normal/abnormal . VENOUS PO2, CORD (test See_Comment [Aut omated message] The code = 8588663131) system [facility] generated this result tra nsmitted reference range : 17 - 41 mmHg. The refer ence range was not used to interpret this result as normal/abnormal . VENOUS BICARBONATE, See_Comment [Automa irina message] The CORD (test code = system [facility] generated 7245019268) this result tra nsmitted reference range : 12 - 29 mEq/L. The refe rence range was not used to interpret this result as normal/abnormal . [facility] [id number] 14:48:50 Test Item Value Reference Range Interpretation Comments HBsAg Semi-Quantitative (test code = Negative Negative 5195-3) [facility] B Surface [id number] 14:48:50 Test Item Value Reference Range Interpretation Comments HBsAg Semi-Quantitative (test code = Negative Negative 5195-3) [facility] Screen - ONCE [id number] 14:14:17 Test Item Value Reference Range Interpretation Comments ABO & RH (test code O POSITIVE Performe d at [facility] = 20) Laboratory Serv [facility] Blood Bank3 [facility] s [address]Oyku Free: [phone] A No. [id number] IAT (test code = Negative Performed a t [facility] 1185) Laboratory [facility] Blood Bank3 [facility] s [address]Izro Free: [phone] A No. [id number] [facility] - ONCE [id number] 14:14:17 Test Item Value Reference Range Interpretation Comments ABO & RH (test code O POSITIVE Performe d at [facility] = 20) Laboratory Serv [facility] Blood Bank3 [address] [facility] [address]Ejit Free: [phone] A No. [id number] IAT (test code = Negative Performed a t [facility] 1185) Laboratory Serv [facility] Blood Bank3 [address] [facility] [address]Fagy Free: [phone] A No. [id number] [facility] with [id number] 13:52:50 Test Item Value Reference Range Interpretation Comments WBC (test code = See_Comment H [Automated 3790-2) message] The sy stem which generated this result transmitted reference range : 4.30 - 11.10 10*3/?L. The reference range was not used to interpret this result as normal/abnormal . RBC (test code = See_Comment L [Automated 789-8) message] The sy stem which generated this result transmitted reference range : 3.93 - 5.25 10*6/?L. The reference range was not used to interpret this result as normal/abnormal . HGB (test code = 11.3 g/dL 11.6-15 L 718-7) HCT (test code = 33.8 % 35.7-45.2 L 4544-3) MCV (test code = 88.3 fL 80.6-95.5 787-2) MCH (test code = 29.5 pg 25.9-32.8 785-6) MCHC (test code = 33.4 g/dL 31.6-35.1 786-4) RDW-SD (test code = 44.2 fL 39-49.9 29859-4) RDW-CV (test code = 13.7 % 12-15.5 788-0) PLT (test code = See_Comment [Automated 777-3) message] The sy stem which generated this result transmitted reference range : 166 - 358 10*3/ ?L. The reference r ata was not used to interpret this result as normal/abnormal . MPV (test code = 11.7 fL 9.5-12.9 92734-1) NRBC/100 WBC (test See_Comment [Automat ed code = 7943733413) message] The system which generated this result transmitted reference range : 0.0 - 10.0 /100 WBCs. The refer ence range was not u sed to interpret th is result as normal/abnormal . NRBC x10^3 (test code See_Comment [Auto mated = 5641250860) message] The s ystem which generated this result transmitted reference range : 10*3/?L. The reference range was not used to interpret this result as normal/abnormal . GRAN MAT (NEUT) % 67.7 % (test code = 770-8) IMM GRAN % (test code 0.70 % = 9612867786) LYMPH % (test code = 21.2 % 736-9) MONO % (test code = 8.9 % 5905-5) EOS % (test code = 1.0 % 713-8) BASO % (test code = 0.5 % 706-2) GRAN MAT x10^3(ANC) 9.19 10*3/uL 1.88-7.09 H (test code = 6041497614) IMM GRAN x10^3 (test 0.09 10*3/uL 0-0.06 H code = 1843683415) LYMPH x10^3 (test code 2.87 10*3/uL 1.32-3.29 = 731-0) MONO x10^3 (test code 1.20 10*3/uL 0.33-0.92 H = 742-7) EOS x10^3 (test code = 0.13 10*3/uL 0.03-0.39 711-2) BASO x10^3 (test code 0.07 10*3/uL 0.01-0.07 = 704-7) Lab Interpretation Abnormal (test code = 32123-2) [facility] with [id number] 13:52:50 Test Item Value Reference Range Interpretation Comments WBC (test code = See_Comment H [Automated 6690-2) message] The sy stem which generated this result transmitted reference range : 4.30 - 11.10 10*3/?L. The reference range was not used to interpret this result as normal/abnormal . RBC (test code = See_Comment L [Automated 789-8) message] The sy stem which generated this result transmitted reference range : 3.93 - 5.25 10*6/?L. The reference range was not used to interpret this result as normal/abnormal . HGB (test code = 11.3 g/dL 11.6-15 L 718-7) HCT (test code = 33.8 % 35.7-45.2 L 4544-3) MCV (test code = 88.3 fL 80.6-95.5 787-2) MCH (test code = 29.5 pg 25.9-32.8 785-6) MCHC (test code = 33.4 g/dL 31.6-35.1 786-4) RDW-SD (test code = 44.2 fL 39-49.9 21422-6) RDW-CV (test code = 13.7 % 12-15.5 788-0) PLT (test code = See_Comment [Automated 777-3) message] The sy stem which generated this result transmitted reference range : 166 - 358 10*3/ ?L. The reference r ata was not used to interpret this result as normal/abnormal . MPV (test code = 11.7 fL 9.5-12.9 83271-2) NRBC/100 WBC (test See_Comment [Automat ed code = 1578409826) message] The system which generated this result transmitted reference range : 0.0 - 10.0 /100 WBCs. The refer ence range was not u sed to interpret th is result as normal/abnormal . NRBC x10^3 (test code See_Comment [Auto mated = 4016272889) message] The s ystem which generated this result transmitted reference range : 10*3/?L. The reference range was not used to interpret this result as normal/abnormal . GRAN MAT (NEUT) % 67.7 % (test code = 770-8) IMM GRAN % (test code 0.70 % = 6031865496) LYMPH % (test code = 21.2 % 736-9) MONO % (test code = 8.9 % 5905-5) EOS % (test code = 1.0 % 713-8) BASO % (test code = 0.5 % 706-2) GRAN MAT x10^3(ANC) 9.19 10*3/uL 1.88-7.09 H (test code = 7338651710) IMM GRAN x10^3 (test 0.09 10*3/uL 0-0.06 H code = 0782814163) LYMPH x10^3 (test code 2.87 10*3/uL 1.32-3.29 = 731-0) MONO x10^3 (test code 1.20 10*3/uL 0.33-0.92 H = 742-7) EOS x10^3 (test code = 0.13 10*3/uL 0.03-0.39 711-2) BASO x10^3 (test code 0.07 10*3/uL 0.01-0.07 = 704-7) Lab Interpretation Abnormal (test code = 73423-4) [facility]CIFIC [id number] 16:13:00 Test Item Value Reference Range Interpretation Comments POCT U SP GRAV (test code = 3255) . 1.005-1.025 POCT PH U (test code = 3254) . 5-8 POCT U LEUK EST (test code = 3263) . Negative - Negative POCT U NIT (test code = 3262) . Negative - Negative POCT U PROT (test code = 3259) Trace Negative - Negative POCT U GLU (test code = 3256) Neg Negative - Negative POCT U KETONE (test code = 3258) . Negative - Negative POCT U UROBILI (test code = 3260) . 0.2-1 POCT U BILI (test code = 3261) . Negative - Negative POCT U BLD (test code = 3257) . Negative - Negative POCT U COLOR (test code = 3266) . POCT U APPEAR (test code = 3267) . [facility]
[2022-04-08 10:56] LABS: Absolute Lymphocytes (CBC) 1.8 K/uL (0.7-4.9); Hematocrit 35.4 % (36.0-45.0); Lymphocytes % 17.9 % (15.3-44.8); MCV 85.1 fL (80-100); MPV 8.4 fL (7.6-11.3); RBC Red Blood Cell Count 4.16 M/uL (3.86-4.86)
[2022-04-08 10:56] LABS: Urine Blood Trace-intact (Negative); Urine Glucose Negative (Negative); Urine Protein Negative (Negative)
[2022-04-08 11:05] LABS: Urine Bacteria <20 /HPF (<20); Urine RBC <5 /HPF (None Seen)
[2022-04-08] MEDS ORDERED: ONDANSETRON 4 MG/2 ML VIAL ONE ×2 (11:06→11:10)
[2022-04-08] MEDS ORDERED: MORPHINE 4 MG/ML SYR ONE ×2 (11:06→11:09)
[2022-04-08] MEDS ORDERED: NA CHLORIDE 0.9% 0 ML ONE (11:06)
[2022-04-08] MEDS ORDERED: NA CHLORIDE 0.9% 1,000 ML ONE (11:10)
[2022-04-08 11:14] LABS: Albumin 4.1 g/dL (3.4-5.0); Bilirubin Total 0.3 mg/dL (0.2-1.0); Potassium 3.9 mmol/L (3.5-5.1); Protein, Total 7.5 g/dL (6.4-8.2)
--- NOTE | 2022-04-08 11:47 | RAD REPORT ---
EXAM DESCRIPTION: US - Abdomen Exam Limited - 04/08/2022 11:03 am CLINICAL HISTORY: ABD PAIN COMPARISON: ABDOMINAL EXAM COMPLETE dated 10/22/2011 FINDINGS: The gallbladder demonstrates multiple small gallstones. No pericholecystic fluid or gallbl adder wall thickening. The common bile duct is normal measuring 4 mm. The liver demonstrates no findings of intrahepatic biliary dilatation. IMPRESSION: Cholelithiasis.
--- NOTE | 2022-04-08 12:04 | EDPHYS ---
Physician Documentation [facility] Name: Saskia Walker Age: 27 yrs Sex: Female : 1995 Arrival Date: 04/08/2022 Time: 09:35 Bed 13 Private MD: ED Physician Connie Peralta HPI: 04/08 10:44 This 27 yrs old Female presents to ER via Ambulatory with complaints of Abdominal Pain. sd2 10:44 27-year-old female presents with chief complaint of epigastric and right upper quadrant sd2 pain that started acutely this morning. She has had some episodes of nausea and vomiting but denies any fevers, diarrhea or urinary symptoms. She did have a with a bilateral tubal ligation performed at the beginning of February. She reports no complications since then. Patient has not taken any medications at home for her symptoms. She has not tried to eat or drink anything today either. She denies any prior history of issues with her gallbladder or reflux.. Historical: - Allergies: 09:48 No Known Allergies; ph - PMHx: 09:48 None; ph - PSHx: 09:48 section; ph - Immunization history:: Adult Immunizations up to date. - Social history:: Smoking status: Patient denies any tobacco usage or history of. ROS: 10:44 Constitutional: Negative for fever, chills, and weight loss, Eyes: Negative for injury, sd2 pain, redness, and discharge, Cardiovascular: Negative for chest pain, palpitations, and edema, Respiratory: Negative for shortness of breath, cough, wheezing. Abdomen/GI: Positive for abdominal pain, nausea and vomiting. Negative for diarrhea. : Negative for dysuria, urinary frequency, hesitancy, urgency and hematuria. MS/Extremity: Negative for injury and deformity, Skin: Negative for injury, rash, and discoloration, Neuro: Negative for headache, numbness and tingling. Exam: 10:44 Constitutional: This is a well developed, well nourished patient who is awake, alert, sd2 and in no acute distress. Head/Face: Normocephalic, atraumatic. Eyes: EOMI, normal conjunctiva bilaterally Chest/axilla: Normal chest wall appearance and motion. Nontender with no deformity. Cardiovascular: Regular rate and rhythm with a normal S1 and S2. No gallops, murmurs, or rubs. 2+ distal pulses. Respiratory: Lungs have equal breath sounds bilaterally, clear to auscultation and percussion. No rales, rhonchi or wheezes noted. No increased work of breathing, no retractions or nasal flaring. 10:44 Skin: Warm, dry with normal turgor. Normal color with no rashes, no lesions, and no evidence of cellulitis. MS/ Extremity: Pulses equal, no cyanosis. Neurovascular intact. Full, normal range of motion. Ambulatory without difficulty. Psych: Awake, alert, with orientation to person, place and time. Behavior, mood, and affect are within normal limits. 10:44 Abdomen/GI: Inspection: abdomen appears normal, Palpation: moderate abdominal tenderness, in the epigastric area and right upper quadrant, voluntary guarding, is elicited in the right upper quadrant, , Indicators: Carroll's sign is positive. Vital Signs: 09:47 BP 109 / 75; Pulse 66; Resp 22; Temp 97.6; Pulse Ox 100% on R/A; Weight 80.74 kg; ph Height 5 ft. 4 in. (162.56 cm); 10:15 BP 103 / 81; Pulse 60; Resp 16; Pulse Ox 100% on R/A; tp1 10:30 BP 150 / 82; Pulse 61; Resp 16; Pulse Ox 99% on R/A; tp1 11:33 BP 151 / 75; Pulse 59; Resp 16; Pulse Ox 99% on R/A; tp1 09:47 Body Mass Index 30.55 (80.74 kg, 162.56 cm) ph MDM: 10:10 Patient medically screened. sd2 10:44 Differential Diagnosis Gastritis, cholecystitis, pancreatitis, SBO, diverticulitis, sd2 kidney stone, appendicitis, UTI, dehydration, electrolyte abnormality among others. Data reviewed: vital signs, nurses notes. 12:01 Data reviewed: lab test result(s), radiologic studies. Counseling: I had a detailed sd2 discussion with the patient and/or guardian regarding: the historical points, exam findings, and any diagnostic results supporting the discharge/admit diagnosis, lab results, radiology results, the need for outpatient follow up, to return to the emergency department if symptoms worsen or persist or if there are any questions or concerns that arise at home. Medical screen evaluation completed. [facility] emergency medical condition absent. ED course: Labs and imaging reviewed. Consistent with cholelithiasis without cholecystitis. Pt feeling much improved after treatment in ED. Advised of dietary modifications and need for continued supportive care at home as well as outpatient follow up with General Surgery. pt comfortable with plan for discharge and outpatient follow up and verbalizes understanding of strict return precautions.. 04/08 10:38 Order name: CBC with Diff; Complete Time: 11:22 sd2 04/08 10:38 Order name: CMP; Complete Time: 11:22 sd2 04/08 10:38 Order name: Lipase; Complete Time: 11:22 sd2 04/08 10:38 Order name: Urine Microscopic Only; Complete Time: 11:22 sd2 04/08 10:56 Order name: Urine Dipstick-Ancillary; Complete Time: 11:22 EDMS 04/08 10:56 Order name: Urine --Ancillary (enter results); Complete Time: 11:29 bd 04/08 10:38 Order name: Urine Dipstick-Ancillary (obtain specimen); Complete Time: 11:47 sd2 04/08 10:38 Order name: Urine Test (obtain specimen); Complete Time: 11:47 sd2 04/08 10:38 Order name: US Abdomen Limited: Evaluate RUQ; Complete Time: 11:55 sd2 Administered Medications: 11:02 Drug: Zofran (Ondansetron) 4 mg Route: IVP; Site: right antecubital; [facility] 11:40 Follow up: Response: No change in condition tp1 11:02 Drug: NS 0.9% 1000 ml Route: IV; Rate: 1 bolus; Site: right antecubital; [facility] 12:21 Follow up: IV Status: Completed infusion; IV Intake: 225ml tp1 11:03 Drug: morphine 4 mg Route: IVP; Infused Over: 4 mins; Site: right antecubital; [facility] 11:40 Follow up: Response: Pain is decreased tp1 Disposition Summary: 04/08/22 12:03 Discharge Ordered Location: Home sd2 Problem: new sd2 Symptoms: have improved sd2 Condition: Stable sd2 Diagnosis - Other cholelithiasis without obstruction sd2 Followup: sd2 - With: Ean Floyd MD - When: 2 - 3 days - Reason: Recheck today's complaints, Continuance of care Discharge Instructions: - Discharge Summary Sheet sd2 - Cholelithiasis sd2 - Gallbladder Eating Plan sd2 Forms: - Medication Reconciliation Form sd2 - Thank You Letter sd2 - Antibiotic Education sd2 - Prescription Opioid Use sd2 Prescriptions: - Ibuprofen 800 mg Oral Tablet - take 1 tablet by ORAL route every 8 hours As needed take with food; 20 tablet; sd2 Refills: 0, Product Selection Permitted - Tramadol 50 mg Oral Tablet - take 1 tablet by ORAL route every 6 hours as needed; 12 tablet; Refills: 0, sd2 Product Selection Permitted Signatures: Dispatcher [employer] Zee Aguirre RN RN Sugar Camara RN RN 6 KathrynConnie mackay MD MD sd2 Sole Eugene RN tp1
--- NOTE | 2022-04-08 12:04 | ER ---
Nurse's Notes [facility] Name: Saskia Walker Age: 27 yrs Sex: Female : 1995 Arrival Date: 04/08/2022 Time: 09:35 Bed 13 [facility] MD: Diagnosis: Other cholelithiasis without obstruction Presentation: 04/08 09:47 Chief complaint: Patient states: Sharp stabbing epigastric pain that started this morning, also reports N/V, recent /. Coronavirus screen: Vaccine status: Patient reports receiving the 1st dose of the Covid vaccine. Ebola Screen: No symptoms or risks identified at this time. Initial Sepsis Screen: Does the patient meet any 2 criteria? No. Patient's initial sepsis screen is negative. Does the patient have a suspected source of infection? No. Patient's initial sepsis screen is negative. Risk Assessment: Do you want to hurt yourself or someone else? Patient reports no desire to harm self or others. Onset of symptoms was April 08, 2022. 09:47 Method Of Arrival: Ambulatory 09:47 Acuity: AARON 3 ph Triage Assessment: 09:49 General: Appears in no apparent distress. uncomfortable, Behavior is calm, cooperative, ph appropriate for age. Pain: Complains of pain in epigastric area. GI: Reports epigastric pain, nausea, vomiting. Historical: - Allergies: 09:48 No Known Allergies; ph - PMHx: 09:48 None; ph - PSHx: 09:48 section; ph - Immunization history:: Adult Immunizations up to date. - Social history:: Smoking status: Patient denies any tobacco usage or history of. Screenin:27 Abuse screen: Denies threats or abuse. Denies injuries from another. Nutritional tp1 screening: No deficits noted. Tuberculosis screening: No symptoms or risk factors identified. Fall Risk No fall in past 12 months (0 pts). No secondary diagnosis (0 pts). IV access (20 points). Ambulatory Aid- None/Bed Rest/Nurse Assist (0 pts). Gait- Normal/Bed Rest/Wheelchair (0 pts) Mental Status- Oriented to own ability (0 pts). Assessment: 10:19 General: Appears in no apparent distress. uncomfortable, Behavior is calm, cooperative. tp1 Pain: Complains of pain in epigastric area Pain does not radiate. Pain currently is 10 out of 10 on a pain scale. Pain began 2 hours ago. Neuro: Level of Consciousness is awake, alert, obeys commands, Oriented to person, place, time, situation. Cardiovascular: Patient's skin is warm and dry. Respiratory: Airway is patent Respiratory effort is even, unlabored. 10:19 GI: Abdomen is flat, non-distended, Bowel sounds present X 4 quads. Abd is soft Abd is tp1 non tender in epigastric area Reports nausea, vomiting, Patient currently denies diarrhea. 10:19 : No signs and/or symptoms were reported regarding the genitourinary system. EENT: No tp1 signs and/or symptoms were reported regarding the EENT system. Derm: Skin is pink, warm \T\ dry. Musculoskeletal: Circulation, motion, and sensation intact. 11:19 Reassessment: Patient appears in no apparent distress at this time. Patient and/or tp1 family updated on plan of care and expected duration. Pain level reassessed. Patient is alert, oriented x 3, equal unlabored respirations, skin warm/dry/pink. states pain is now a 5/10. 11:25 Reassessment: Kathryn unavailable, Spoke to Gaffney FLOOR INSPECTOR regarding increasing BP, advised tp1 to continue monitoring. Vital Signs: 09:47 BP 109 / 75; Pulse 66; Resp 22; Temp 97.6; Pulse Ox 100% on R/A; Weight 80.74 kg; ph Height 5 ft. 4 in. (162.56 cm); 10:15 BP 103 / 81; Pulse 60; Resp 16; Pulse Ox 100% on R/A; tp1 10:30 BP 150 / 82; Pulse 61; Resp 16; Pulse Ox 99% on R/A; tp1 11:33 BP 151 / 75; Pulse 59; Resp 16; Pulse Ox 99% on R/A; tp1 09:47 Body Mass Index 30.55 (80.74 kg, 162.56 cm) ph ED Course: 09:35 Patient arrived in ED. mr 09:35 Connie Peralta MD is Attending Physician. sd2 09:48 Triage completed. ph 09:49 Arm band placed on Patient placed in waiting room, Patient notified of wait time. ph 10:10 Patient has correct armband on for positive identification. Placed in gown. Bed in low tp1 position. Call light in reach. Side rails up X 1. 10:10 Pulse ox on. NIBP on. tp1 10:18 Sole Eugene, RN is Primary Nurse. tp1 10:45 Inserted saline lock: 20 gauge in right antecubital area, using aseptic technique. jh6 Blood collected. 11:05 US Abdomen Limited: Evaluate RUQ In Process Unspecified. EDMS 11:58 No provider procedures requiring assistance completed. tp1 12:03 Ean Floyd MD is Referral Physician. sd2 12:20 IV discontinued, intact, bleeding controlled, No redness/swelling at site. Pressure tp1 dressing applied. Administered Medications: 11:02 Drug: Zofran (Ondansetron) 4 mg Route: IVP; Site: right antecubital; 6 11:40 Follow up: Response: No change in condition tp1 11:02 Drug: NS 0.9% 1000 ml Route: IV; Rate: 1 bolus; Site: right antecubital; 6 12:21 Follow up: IV Status: Completed infusion; IV Intake: 225ml tp1 11:03 Drug: morphine 4 mg Route: IVP; Infused Over: 4 mins; Site: right antecubital; 6 11:40 Follow up: Response: Pain is decreased tp1 Medication: 11:59 VIS not applicable for this client. tp1 Intake: 12:21 IV: 225ml; Total: 225ml. tp1 Outcome: 12:03 Discharge ordered by . sd2 12:19 Discharged to home ambulatory. tp1 12:19 Condition: good 12:19 Discharge instructions given to patient, Instructed on discharge instructions, follow up and referral plans. medication usage, Demonstrated understanding of instructions, follow-up care, medications, Prescriptions given X 2. 12:20 Patient left the ED. tp1 Signatures: Dispatcher [employer] [facility] Lissette GarciaZee RN RN ph Hastedt, Jennifer, RN RN 6 Sole Eugene, RADHA RN tp1 Connie Peralta MD MD sd2 Corrections: (The following items were deleted from the chart) 10:37 10:19 Pain: Complains of pain in epigastric area Pain does not radiate. Pain currently tp1 is 10 out of 10 on a pain scale. tp1 11:27 10:19 GI: Abdomen is flat, non-distended, Reports nausea, vomiting, Patient currently tp1 denies diarrhea, tp1
[2022-04-09 15:49] VITALS: TEMP 97.6
[2022-04-09 15:58] VITALS: O2SAT 99
[2022-04-09 16:00] VITALS: BP 151/75
== END 2022-04-08 12:20 | disposition home or self-care (01) ==
LOC: ER 09:32
DX: K80.80 Other cholelithiasis without obstruction (principal)
CPT/HCPCS: 96361; 85025; 36415; 81025; 83690; 80053; 76705; 96375; 96374; 99284; J7030; J2405; 81003; 81015